=== PATIENT | male | born 1940 | race Hispanic/Latino ===

== ENCOUNTER 2017-11-12 08:17 | Outpatient (RCR) | payer OTHER ==
[~2017-11-12 08:17] MED LIST: ASPIR 8181 MG PO; BRILINTA90 MG PO; COREG6.25 MG PO; COZAAR100 MG PO; ELIQUIS PO; FINASTERIDE5 MG PO; FLOMAX0.4 MG PO; FUROSEMIDE20 MG PO; LASIX40 MG PO; LIDOCAINE VISC 2% SOLN 15 ML UDC ONE; METOLAZONE2.5 MG PO; METOLAZONE5 MG PO; OMEPRAZOLE40 MG PO; PANTOPRAZOLE SO20 MG PO; POTASSIUM CHLOR8 ME1 PO; RANITIDINE HCL300 MG PO; REGLAN10 MG PO; SIMVASTATIN40 MG PO; TICLOPIDINE HC250 MG PO; TOPROL XL25 MG PO; TYLENOL WITH C1 EACH PO
== END 2017-11-17 ==
LOC: WCC 08:17
PROVIDERS: ATTEND Podiatrist Foot & Ankle Surgery
DX: I70.203 Unspecified atherosclerosis of native arteries of extremities, bilateral legs (principal); I70.234 Atherosclerosis of native arteries of right leg with ulceration of heel and midfoot; I70.235 Atherosclerosis of native arteries of right leg with ulceration of other part of foot; L97.413 Non-pressure chronic ulcer of right heel and midfoot with necrosis of muscle; L97.513 Non-pressure chronic ulcer of other part of right foot with necrosis of muscle; B96.89 Other specified bacterial agents as the cause of diseases classified elsewhere; I10 Essential (primary) hypertension; I48.2 Chronic atrial fibrillation; I50.9 Heart failure, unspecified; I25.810 Atherosclerosis of coronary artery bypass graft(s) without angina pectoris; Z86.79 Personal history of other diseases of the circulatory system
CPT/HCPCS: 15275 ×2; 36415; 82948; 97597; Q4117 ×2

== ENCOUNTER 2017-12-17 07:30 | Outpatient (RCR) | payer OTHER ==
[2017-12-17] MEDS ORDERED: MUPIROCIN 2% OINT 22 GM TUBE ONE (16:44)
[2017-12-17] MEDS ORDERED: LIDOCAINE VISC 2% SOLN 15 ML UDC ONE (16:44)
== END 2017-12-18 ==
LOC: WCC 07:30
PROVIDERS: ATTEND Podiatrist Foot & Ankle Surgery
DX: I70.203 Unspecified atherosclerosis of native arteries of extremities, bilateral legs (principal); I70.235 Atherosclerosis of native arteries of right leg with ulceration of other part of foot; I70.234 Atherosclerosis of native arteries of right leg with ulceration of heel and midfoot; L97.513 Non-pressure chronic ulcer of other part of right foot with necrosis of muscle; L97.413 Non-pressure chronic ulcer of right heel and midfoot with necrosis of muscle; L60.0 Ingrowing nail; B95.2 Enterococcus as the cause of diseases classified elsewhere; B95.61 Methicillin susceptible Staphylococcus aureus infection as the cause of diseases classified elsewhere; B96.89 Other specified bacterial agents as the cause of diseases classified elsewhere; I10 Essential (primary) hypertension; I48.2 Chronic atrial fibrillation; I50.9 Heart failure, unspecified; I25.810 Atherosclerosis of coronary artery bypass graft(s) without angina pectoris; Z86.79 Personal history of other diseases of the circulatory system
CPT/HCPCS: 87071; 87075; 87186; 87205; 97597; G0463 ×3

== ENCOUNTER 2018-01-14 07:55 | Outpatient (RCR) | payer OTHER ==
[~2018-01-14 07:55] MED LIST changes: +MUPIROCIN 2% OINT 22 GM TUBE ONE
[2018-01-14] MEDS ORDERED: LIDOCAINE VISC 2% SOLN 15 ML UDC ONE (15:20)
== END 2018-01-15 ==
LOC: WCC 07:55
PROVIDERS: ATTEND Podiatrist Foot & Ankle Surgery
DX: I70.235 Atherosclerosis of native arteries of right leg with ulceration of other part of foot (principal); I70.203 Unspecified atherosclerosis of native arteries of extremities, bilateral legs; L97.513 Non-pressure chronic ulcer of other part of right foot with necrosis of muscle; L97.511 Non-pressure chronic ulcer of other part of right foot limited to breakdown of skin; B96.89 Other specified bacterial agents as the cause of diseases classified elsewhere; I10 Essential (primary) hypertension; I25.810 Atherosclerosis of coronary artery bypass graft(s) without angina pectoris; I48.2 Chronic atrial fibrillation; I50.9 Heart failure, unspecified; Z86.79 Personal history of other diseases of the circulatory system

== ENCOUNTER 2018-01-28 07:21 | Outpatient (RCR) | payer OTHER ==
[~2018-01-28 07:21] MED LIST changes: -LIDOCAINE VISC 2% SOLN 15 ML UDC ONE; -MUPIROCIN 2% OINT 22 GM TUBE ONE
== END 2018-02-15 ==
LOC: WCC 07:21
PROVIDERS: ATTEND Podiatrist Foot & Ankle Surgery
DX: I70.235 Atherosclerosis of native arteries of right leg with ulceration of other part of foot (principal); L97.511 Non-pressure chronic ulcer of other part of right foot limited to breakdown of skin; I70.203 Unspecified atherosclerosis of native arteries of extremities, bilateral legs; B96.89 Other specified bacterial agents as the cause of diseases classified elsewhere; I10 Essential (primary) hypertension; I25.810 Atherosclerosis of coronary artery bypass graft(s) without angina pectoris; I48.2 Chronic atrial fibrillation; I50.9 Heart failure, unspecified; Z86.79 Personal history of other diseases of the circulatory system

== ENCOUNTER → 2018-06-19 | Day surgery (SDC) | payer OTHER ==
[2018-06-02 16:38] LABS: BASOPHILS # (AUTO) 0.1 (0.0-0.1); EOSINOPHILS # (AUTO) 0.3 (0.0-0.4); EOSINOPHILS % 5.3 % (0.0-6.0); HEMATOCRIT 41.5 % (38.2-49.6); HEMOGLOBIN 13.3 g/dL (14.0-18.0); LYMPHOCYTES # (AUTO) 1.2 (1.0-3.2); LYMPHOCYTES % 25.1 % (18.0-39.1); MEAN CORPUSCULAR HEMOGLOBIN 31.1 pg (28-32); MEAN CORPUSCULAR VOLUME 97.2 fL (81-99); MONOCYTES # (AUTO) 0.5 (0.2-0.8); MONOCYTES % 9.4 % (4.4-11.3); NEUTROPHILS # (AUTO) 2.9 (2.1-6.9); PLATELET COUNT 143 x10e3/uL (140-360); RED BLOOD COUNT 4.27 x10e6/uL (4.3-5.7); RED CELL DISTRIBUTION WIDTH 15.7 % (11.7-14.4)
[2018-06-02 16:53] LABS: ANION GAP 15.2 mmol/L (8-16); CALCIUM 9.2 mg/dL (8.4-10.2); CREATININE, SERUM 1.57 mg/dL (0.72-1.25); POTASSIUM 4.2 mmol/L (3.5-5.1)
[~2018-06-19] MED LIST changes: +BUPIVACAINE HC 0.75% PF 10ML VIAL INJ ONE; +CHONDR SU A NA/HYALUR SOD 1 EACH KIT IO ONE; +EPINEPHRINE HCL INJ 1 MG/ML AMP ONE; +LIDOCAINE 2% /EPINEPHRINE 20 ML SDV INJ ONE; +LIDOCAINE HCL-PF 4% 40 MG/1 ML 5ML AMP ONE; +PILOCARPINE HCL(OPTH) 15 ML LIQD ONE; +POVIDONE IODINE 5% (OPTH) 30 ML BTL ONE; +PROPOFOL IV EMULSION 10 MG/ML 20 ML VIAL ONE; +TOBRAMYCIN/DEXAMETHASONE(OPTH) 3.5 GM TUBE ONE; +XARELTO10 MG
== END | disposition home or self-care (01) ==
LOC: OR 06:05
PROVIDERS: ATTEND Ophthalmology
DX: H25.12 Age-related nuclear cataract, left eye (principal); I25.810 Atherosclerosis of coronary artery bypass graft(s) without angina pectoris; I13.0 Hypertensive heart and chronic kidney disease with heart failure and stage 1 through stage 4 chronic kidney disease, or unspecified chronic kidney disease; N18.9 Chronic kidney disease, unspecified; I50.9 Heart failure, unspecified; Z88.0 Allergy status to penicillin; Z01.810 Encounter for preprocedural cardiovascular examination; Z01.812 Encounter for preprocedural laboratory examination; Z79.82 Long term (current) use of aspirin; Z79.02 Long term (current) use of antithrombotics/antiplatelets; Z95.0 Presence of cardiac pacemaker; Z95.1 Presence of aortocoronary bypass graft; Z86.73 Personal history of transient ischemic attack (TIA), and cerebral infarction without residual deficits
CPT/HCPCS: 36415; 66982; 80048; 85025; 93005; J0171; J2001

== ENCOUNTER → 2018-09-04 | Day surgery (SDC) | payer OTHER ==
[2018-09-03 13:16] LABS: BASOPHILS % 0.3 % (0.0-1.0); EOSINOPHILS # (AUTO) 0.3 (0.0-0.4); EOSINOPHILS % 4.6 % (0.0-6.0); HEMATOCRIT 41.1 % (38.2-49.6); HEMOGLOBIN 14.1 g/dL (14.0-18.0); LYMPHOCYTES % 16.1 % (18.0-39.1); MEAN CORPUSCULAR HGB CONC 34.3 g/dL (31-35); MEAN CORPUSCULAR VOLUME 93.2 fL (81-99); MONOCYTES # (AUTO) 0.6 (0.2-0.8); MONOCYTES % 9.3 % (4.4-11.3); NEUTROPHILS # (AUTO) 4.1 (2.1-6.9); NEUTROPHILS % 69.4 % (38.7-80.0); PLATELET COUNT 132 x10e3/uL (140-360); RED BLOOD COUNT 4.41 x10e6/uL (4.3-5.7); RED CELL DISTRIBUTION WIDTH 13.7 % (11.7-14.4)
[~2018-09-04] MED LIST changes: +CYCLOPENTOLATE HCL 1% OPTH SOLN 2ML BTL ONE; +GATIFLOXACIN(OPTH) 5 ML LIQD ONE; +LIDOCAINE HCL 2% LOCAL INJ 5 ML SDV VIAL INJ ONE; +PHENYLEPHRINE HCL 2 ML DROPS ONE
[2018-09-04 10:00] VITALS: BP 146/68
== END | disposition home or self-care (01) ==
LOC: OR 06:10
PROVIDERS: ATTEND Ophthalmology
DX: H25.11 Age-related nuclear cataract, right eye (principal); I10 Essential (primary) hypertension; I25.10 Atherosclerotic heart disease of native coronary artery without angina pectoris; K21.9 Gastro-esophageal reflux disease without esophagitis; Z88.6 Allergy status to analgesic agent; Z88.0 Allergy status to penicillin; Z01.812 Encounter for preprocedural laboratory examination; Z79.02 Long term (current) use of antithrombotics/antiplatelets; Z79.82 Long term (current) use of aspirin; Z86.73 Personal history of transient ischemic attack (TIA), and cerebral infarction without residual deficits; Z87.01 Personal history of pneumonia (recurrent); Z95.1 Presence of aortocoronary bypass graft; Z95.810 Presence of automatic (implantable) cardiac defibrillator
CPT/HCPCS: 36415; 66982; 85025; J0171; J2001 ×2; V2632

== ENCOUNTER 2019-02-03 14:03 | Observation (INO) | payer OTHER ==
[~2019-02-03] VITALS: Ht 175.3 cm; Wt 64.4 kg
[~2019-02-03 14:03] MED LIST changes: -BUPIVACAINE HC 0.75% PF 10ML VIAL INJ ONE; -CHONDR SU A NA/HYALUR SOD 1 EACH KIT IO ONE; -CYCLOPENTOLATE HCL 1% OPTH SOLN 2ML BTL ONE; -EPINEPHRINE HCL INJ 1 MG/ML AMP ONE; -GATIFLOXACIN(OPTH) 5 ML LIQD ONE; -LIDOCAINE 2% /EPINEPHRINE 20 ML SDV INJ ONE; -LIDOCAINE HCL 2% LOCAL INJ 5 ML SDV VIAL INJ ONE; -LIDOCAINE HCL-PF 4% 40 MG/1 ML 5ML AMP ONE; -PHENYLEPHRINE HCL 2 ML DROPS ONE; -PILOCARPINE HCL(OPTH) 15 ML LIQD ONE; -POVIDONE IODINE 5% (OPTH) 30 ML BTL ONE; -PROPOFOL IV EMULSION 10 MG/ML 20 ML VIAL ONE; -TOBRAMYCIN/DEXAMETHASONE(OPTH) 3.5 GM TUBE ONE; -XARELTO10 MG; +XARELTO10 MG PO
--- OUTSIDE RECORDS SUMMARY | 2019-02-03 14:05 | XMS REPORT | Continuity of Care Document ---
Author Author [facility] Interface Address Unknown Phone Unavailable Problems Problem Status Onset Date Classification Date Reported Comments Source Hypercholesterolemia Active Problem 11/01/2014 Carrol Mcclendon Occlusion and stenosis of carotid artery Active Problem 11/01/2014 Carrol Mcclendon CRI Active Problem 11/01/2014 Carrol Mcclendon AICD present Active Problem 11/01/2014 Carrol Mcclendon Abnormal ECG Active Problem 11/01/2014 Carrol Mcclendon Mitral regurgitation Active Problem 11/01/2014 Carrol Mcclendon Carotid artery disease Active Problem 11/01/2014 Carrol Mcclendon 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 graft Active Problem 11/01/2014 Carrol Mcclendon Chronic systolic heart failure Active Problem 11/01/2014 Carrol Mcclendon 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 Problem 11/01/2014 Carrol Mcclendon Angina pectoris Active Problem 11/01/2014 Carrol Mcclendon Medications Medication Details Route Status Patient Instructions Ordering Provider Order Date Source Metoprolol Succinate 1 tablet by mouth Active 50 mg by mouth daily Florencedi 10/05/2014 Carrol Mcclendon Allergies, Adverse Reactions, Alerts Substance Category Reaction Severity Reaction type Status Date Reported Comments Source Immunizations Immunization Date Given Site Status Last Updated Comments Source Results Order Name Results Value Reference Range Date Interpretation Comments Source Vital Signs Vital Sign Value Date Comments Source Encounters Location Location Details Encounter Type Encounter Number Reason For Visit Attending Provider ADM Date DC Date Status Source Carrol Mccl[place]on [place] Unknown [id number] 10/11/2014 10/11/2014 Carrol Mcclendon [place] Unknown [id number] 10/11/2014 10/11/2014 Carrol Mcclendon MD [place] Unknown [id number] 11/25/2014 11/25/2014 Carrol Mcclendon Procedures Procedure Code Date Perfomer Comments Source
--- OUTSIDE RECORDS SUMMARY | 2019-02-03 14:05 | XMS REPORT ---
Author Author Carrol Mcclendon Organization [employer] Address Unknown Phone Unavailable Care Team Providers Care Shop Tech Name Role Phone Carrol Mcclendon CP Unavailable Encounters Encounter Location Date Unknown Carrol Mcclendon MD [place] Oct 11, 2014 Problems Problem Type Condition ICD-9 Code Onset Dates Condition Status Problem Hypercholesterolemia 272.0 Active Problem Occlusion and stenosis of carotid artery 433.10 Active Problem CRI (chronic renal insufficiency) 585.9 Active Problem AICD (automatic cardioverter/defibrillator) present V45.02 Active Problem Abnormal ECG 794.31 Active Problem Mitral regurgitation 424.0 Active Problem Carotid artery disease 447.9 Active Problem 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 graft 414.05 Active Problem Chronic systolic heart failure 428.22 Active Problem Atherosclerosis of lower extremity with claudication 440.21 Active Problem Angina pectoris 413.9 Active Medications Medication Code System Code Instructions Start Date End Date Status Dosage Metoprolol Succinate Unknown 0 50 mg by mouth daily Oct 05, 2014 April 09, 2015 Active 1 tablet Social History Social History Element Qualifiers Date Reported Smoking . Status Former Smoker Quit in 1974 Oct 05, 2014 Alcohol Use No. Oct 05, 2014 Alcohol Screening: No. Did you have a drink containing alcohol in the past year?: No, Points: 0, Interpretation: Negative Oct 05, 2014 Marital Status: . Oct 05, 2014 Do you drink alcohol? No. 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
--- OUTSIDE RECORDS SUMMARY | 2019-02-03 14:05 | XMS REPORT ---
Author Author Carrol Mcclendon Organization [employer] Address Unknown Phone Unavailable Care Team Providers Care Kosher Inspector Name Role Phone Carrol Mcclendon CP Unavailable Encounters Encounter Location Date Unknown Carrol Mcclendon [place] Oct 11, 2014 Unknown Carrol Mcclendon MD [place] Nov 25, 2014 Social History Social History Element Qualifiers Date [...]
[2019-02-03 14:40] LABS: BILIRUBIN,URINE NEGATIVE (NEGATIVE); CLARITY,URINE CLEAR (CLEAR); COLOR,URINE YELLOW (YELLOW); KETONES,URINE NEGATIVE (NEGATIVE); LEUKOCYTE ESTERASE ,URINE NEGATIVE (NEGATIVE); NITRITE,URINE NEGATIVE (NEGATIVE); PROTEIN,URINE DIPSTICK 2+ (NEGATIVE); URINE UROBILINOGEN 0.2 mg/dL (0.2 - 1)
[2019-02-03 14:41] LABS: BASOPHILS % 0.6 % (0.0-1.0); EOSINOPHILS # (AUTO) 0.1 (0.0-0.4); EOSINOPHILS % 1.4 % (0.0-6.0); HEMATOCRIT 42.9 % (38.2-49.6); LYMPHOCYTES % 19.8 % (18.0-39.1); MEAN CORPUSCULAR HEMOGLOBIN 32.3 pg (28-32); MEAN CORPUSCULAR HGB CONC 32.6 g/dL (31-35); MEAN CORPUSCULAR VOLUME 99.1 fL (81-99); MONOCYTES # (AUTO) 0.6 (0.2-0.8); MONOCYTES % 12.4 % (4.4-11.3); NEUTROPHILS # (AUTO) 3.4 (2.1-6.9); NEUTROPHILS % 65.6 % (38.7-80.0); PLATELET COUNT 119 x10e3/uL (140-360); RED BLOOD COUNT 4.33 x10e6/uL (4.3-5.7); RED CELL DISTRIBUTION WIDTH 15.7 % (11.7-14.4)
[2019-02-03 14:50] LABS: BACTERIA,URINE MODERATE /HPF; EPITHELIAL CELLS,URINE RARE /LPF
[2019-02-03 14:53] LABS: INR 1.16; PROTHROMBIN TIME 15.4 seconds (11.9-14.5)
[2019-02-03 14:54] LABS: PARTIAL THROMBOPLASTIN TIME 33.5 seconds (23.8-35.5)
[2019-02-03 15:00] LABS: ALANINE AMINOTRANSFERASE 19 IU/L (0-55); ALBUMIN/GLOBULIN RATIO 1.2 (0.8-2.0); ALKALINE PHOSPHATASE 82 IU/L (40-150); ANION GAP 17.2 mmol/L (8-16); BLOOD UREA NITROGEN 49 mg/dL (7-26); BUN/CREATININE RATIO 22 (6-25); CALCIUM 9.6 mg/dL (8.4-10.2); CARBON DIOXIDE 26 mmol/L (22-29); CHLORIDE 106 mmol/L (98-107); CREATINE KINASE 83 IU/L (30-200); CREATININE, SERUM 2.25 mg/dL (0.72-1.25); EST GLOMERULAR FILTRATION RATE 28 ML/MIN (60-); GLUCOSE 101 mg/dL (74-118); POTASSIUM 4.2 mmol/L (3.5-5.1); SODIUM 145 mmol/L (136-145)
--- NOTE | 2019-02-03 15:29 | Diagnostic Imaging Report ---
EXAM: CHEST SINGLE (PORTABLE) DATE: 02/03/2019 2:25 PM INDICATION: Shortness of breath, chest pain COMPARISON: No previous chest x-ray available on PACS for comparison FINDINGS: Lines and tubes: Implanted cardiac device on the left with transvenous leads extending to the right atrium and right ventricle. There are wire sternotomy sutures and surgical clips in the mediastinum. Cardiac silhouette is moderately enlarged. There is mild pulmonary vascular congestion. Small bilateral pleural effusions are present. Mild atelectasis at the lung bases. No pneumothorax. Upper abdomen unremarkable with surgical clips seen in the right upper quadrant. No acute bony abnormality. IMPRESSION: Cardiomegaly, pulmonary vascular congestion and small bilateral pleural effusions. Signed by: Dr. Edwardo Cheng M.D. on 02/03/2019 3:26 PM
--- NOTE | 2019-02-03 16:15 | NUR ---
BLADDER SCAN [id number]; DR. MCCLELLAN INFORMED
[2019-02-03] MEDS ORDERED: SODIUM CHLORIDE FLUSH 10 ML SYR INJ PRN (17:00)
[2019-02-03] MEDS: FUROSEMIDE INJ 10 MG/ML 4 ML VIAL IV SCH (17:15)
--- NOTE | 2019-02-03 17:56 | NUR ---
Received patient from ED at this time. A&Ox3. Irish speaking. 18 g, R AC saline lock, no signs of infiltration. No pain or distress noted. Lung sounds clear, SpO2 96% on room air. Tele box 7, AFib with underlying pacing on demand. Bowel sounds active. Skin warm, dry, and intact. Slight bruising noted on arms. +1 pitting edema to BLE. Patient reports having a bowel movement this morning. Patient lives with daughter, but completes ADLs independently. Bed locked in lowest position, call light in reach. Daughter at bedside.
[2019-02-03 18:10] VITALS: BP 141/87
[2019-02-03 18:14] VITALS: BP 141/87
[2019-02-03] MEDS ORDERED: PNEUMOCOCCAL VACCINE POLYVALENT 23 MCG/0.5 ML VIAL IM SCH (18:43)
[2019-02-03] MEDS ORDERED: POTASSIUM CHLORIDE 10MEQ EA PO NR (19:00)
[2019-02-03] MEDS ORDERED: INFLUENZA VIRUS VAC SPLIT INJ 0.5 ML SYR IM NR (19:15)
--- NOTE | 2019-02-03 19:15 | NUR ---
Received bedside shift report from RN. Patient is alert and oriented x3. Performed comprehensive assessment on patient. Patient reported no chest pain, shortness of breath or pain. RN instructed family members that the patient will need blood drawn near midnight to check on heart. Verbalized understanding.
[2019-02-03 20:00] VITALS: BP 124/69
[2019-02-03] MEDS ORDERED: SIMVASTATIN 40 MG TAB PO SCH (21:00)
[2019-02-03] MEDS ORDERED: METOCLOPRAMIDE HCL 10 MG TAB PO SCH (21:00)
[2019-02-03] MEDS ORDERED: METOPROLOL SUCCINATE 25 MG TAB XL PO SCH (21:00)
[2019-02-04 00:49] VITALS: BP 116/77
[2019-02-04 00:56] LABS: CREATINE KINASE MB 1.7 ng/mL (0-5.0)
--- NOTE | 2019-02-04 01:54 | History and Physical ---
PRIMARY CARE PHYSICIAN: Dr. Feliciano Jaramillo. CHIEF COMPLAINT: Acute exacerbation of systolic dysfunction, congestive heart failure. HISTORY: An 78-year-old male apparently for the past week or so was getting some shake supplement from his neighbor, came in with increasing shortness of breath for the past day or so. The patient will gain approximately 3-5 pounds. The patient is otherwise stable. He does have chronic kidney disease and systolic dysfunction, congestive heart failure. He is on furosemide 40 mg twice a day. PAST MEDICAL HISTORY: Systolic dysfunction, congestive heart failure. Last ejection fraction approximately 20% to 25%. Coronary artery bypass surgery, coronary artery disease, AICD, hypertension, reflux, atrial fibrillation, antiepileptic therapy, chronic kidney disease stage 3. SOCIAL HISTORY: The patient does not smoke or use alcohol. No recreational drugs. ALLERGIES: MORPHINE AND PENICILLIN. HOME MEDICATION: List is reviewed. REVIEW OF SYSTEMS: Short of breath, improved. PHYSICAL EXAMINATION: VITAL SIGNS: Temperature is 98, blood pressure 141/87, pulse rate 76, respirations 20. GENERAL: The patient is not in acute distress. Awake. HEENT: Normocephalic, atraumatic. Anicteric. NECK: Supple grossly, positive JVD. PULMONARY: Diminished breath sound at bases with rales. CARDIOVASCULAR: S1, S2. Irregularly irregular. Rate control. ABDOMEN: Soft, unremarkable. EXTREMITIES: No gross cyanosis or edema. NEUROLOGIC: No gross focal deficit. Chest x-ray shows cardiomegaly, pulmonary vascular congestion and small bilateral pleural effusion. IMPRESSION: [id number] systolic dysfunction, congestive heart failure exacerbation. PLAN: Discussed with the patient regarding medication, fluid restriction, and supplement. The patient expressed understanding. Observation. We will continue with home medication on discharge, but for now, continue with IV furosemide. MD RENY Lewis/KENZIE /[id number]
[2019-02-04 04:00] VITALS: BP 135/81
--- NOTE | 2019-02-04 06:07 | Diagnostic Imaging Report ---
Examination: Single AP view of the chest. COMPARISON: Portable chest 02/03/2019 INDICATION: Difficulty breathing, CHF IMPRESSION: 1. Lines and Tubes: Stable left upper chest multilead cardiac device. 2. Lungs are well-inflated. No interval change in central pulmonary venous congestion and small bilateral pleural effusions. No consolidation. 3. Stable enlargement of the cardiac silhouette. 4. No acute bony abnormalities. Signed by: Dr. Gt Montano M.D. on 02/04/2019 6:04 AM
[2019-02-04 06:54] LABS: BASOPHILS % 0.4 % (0.0-1.0); EOSINOPHILS # (AUTO) 0.1 (0.0-0.4); EOSINOPHILS % 2.9 % (0.0-6.0); HEMATOCRIT 39.9 % (38.2-49.6); HEMOGLOBIN 12.9 g/dL (14.0-18.0); LYMPHOCYTES # (AUTO) 0.9 (1.0-3.2); LYMPHOCYTES % 19.1 % (18.0-39.1); MEAN CORPUSCULAR HEMOGLOBIN 31.9 pg (28-32); MEAN CORPUSCULAR HGB CONC 32.3 g/dL (31-35); MEAN CORPUSCULAR VOLUME 98.8 fL (81-99); MONOCYTES # (AUTO) 0.5 (0.2-0.8); MONOCYTES % 9.9 % (4.4-11.3); NEUTROPHILS # (AUTO) 3.3 (2.1-6.9); NEUTROPHILS % 67.5 % (38.7-80.0); PLATELET COUNT 105 x10e3/uL (140-360); RED BLOOD COUNT 4.04 x10e6/uL (4.3-5.7); RED CELL DISTRIBUTION WIDTH 15.8 % (11.7-14.4)
[2019-02-04] MEDS ORDERED: PANTOPRAZOLE SOD 40 MG TABEC PO SCH (07:30)
[2019-02-04 07:45] LABS: ANION GAP 16.2 mmol/L (8-16); CALCIUM 9.3 mg/dL (8.4-10.2); CREATININE, SERUM 2.08 mg/dL (0.72-1.25); POTASSIUM 4.2 mmol/L (3.5-5.1)
[2019-02-04 07:54] LABS: CREATINE KINASE MB 2.3 ng/mL (0-5.0)
--- NOTE | 2019-02-04 08:00 | NUR ---
EDUCATED ABOUT IMM, SIGNED, FILED IN CHART, WITH COPY LEFT WITH FAMILY AT BEDSIDE.
--- NOTE | 2019-02-04 08:00 | NUR ---
PER CLAU MILES WITH DR. YAMILE VELÁSQUEZ TO D/C HOME FROM CARDIOLOGY STANDPOINT.
[2019-02-04 08:03] VITALS: BP 125/82
[2019-02-04] MEDS ORDERED: POTASSIUM CHLORIDE 10MEQ EA PO SCH (09:00)
[2019-02-04] MEDS ORDERED: RIVAROXABAN 15 MG TABLET PO SCH (09:00)
[2019-02-04] MEDS ORDERED: ASPIRIN 81 MG CHEW TAB PO SCH (09:00)
[2019-02-04] MEDS: FUROSEMIDE INJ 10 MG/ML 4 ML VIAL IV SCH (10:19)
[2019-02-04] MEDS ORDERED: PNEUMOCOCCAL VACCINE POLYVALENT 23 MCG/0.5 ML VIAL IM SCH (10:30)
[2019-02-04] MEDS ORDERED: INFLUENZA VIRUS VAC SPLIT INJ 0.5 ML SYR IM NR (10:30)
--- NOTE | 2019-02-04 10:52 | Consultation ---
DATE OF CONSULTATION: 02/03/2019 REASON FOR CONSULTATION: CHF. HISTORY OF PRESENT ILLNESS: This is an 78-year-old male with history of CAD, who presented with shortness of breath. According to the patient and family at the bedside, for two weeks he has been having shortness of breath, unable to carry out activities of daily living, difficulty lying flat, have to sit up that he was brought to the emergency room for evaluation. According to the daughter, he has not been eating real good and they have been giving him a lot of fluid. He denied any chest pain, any palpitation, any dizziness, any diaphoresis, or headache. Troponin x3 was negative. EKG showed AFib, irregularly irregular with demand pacing, BNP showed 2230, and chest x-ray showed pulmonary vascular congestion. PAST MEDICAL HISTORY: AFib, hypertension, systolic CHF, CAD, kidney stone, hyperlipidemia, and GERD. PAST SURGICAL HISTORY: ICD placement, cardiac stent x2, and open-heart surgery. FAMILY HISTORY: Positive for CAD and hypertension. SOCIAL HISTORY: No smoking. No drinking. He lives at home with family. MEDICATIONS: See med list. ALLERGIES: HE IS ALLERGIC TO MORPHINE AND PENICILLIN. REVIEW OF SYSTEMS: Negative except those mentioned above. PHYSICAL EXAMINATION: VITAL SIGNS: Temperature 96, heart rate 60, blood pressure 135/81, respirations 14, and oxygen saturation 95% on room air. GENERAL: He is awake, alert, and oriented x3. HEENT: Mucous membranes moist. NECK: Supple. LUNGS: Bilateral with decreased breath sounds. CARDIOVASCULAR: Irregularly irregular. ABDOMEN: Soft. NEUROLOGIC: Intact. EXTREMITIES: With 1+ edema. LABS: Sodium 143, potassium 4.2, chloride 104, CO2 of 27, BUN 52, creatinine 2.08, and glucose 74. White blood cell 4.86, hemoglobin 12.9, hematocrit 39.9, and platelets 105. PT 15.4, PTT 33.5, and INR 1.16. IMPRESSION: 1. Chronic systolic congestive heart failure exacerbation. 2. Hypertension. 3. Chronic kidney disease. 4. Atrial fibrillation. 5. History of coronary artery disease with coronary artery bypass grafting. PLAN: 1. We will get an echocardiogram to reassess his LV and valve function. 2. He has ICD that was recently interrogated. 3. We will put him on low-salt diet and 1.5 L fluid restriction. 4. His heart rate is controlled and he is anticoagulated with Xarelto. 5. We will continue diuretic and beta-robb. Further cardiac workup pending clinical course. Thank you for this consultation. Dictated by Jesusita Meadows, PRINCIPAL CLERK TYPIST MD JOAQUIM Rodrigues/KENZIE /[id number]
--- NOTE | 2019-02-05 02:46 | Discharge Summary ---
PRIMARY CARE PHYSICIAN: Feliciano Jaramillo MD MOTORSPORTS TECHNICIAN: Saurav Brandon MD FINAL DIAGNOSES: [id number] systolic dysfunction and congestive heart failure exacerbation secondary to over consumption of supplement drinks. HISTORY: An 78-year-old male, apparently recently started to drink supplement given by his neighbor. The patient came in with fluid overload. The patient at baseline taking furosemide and also Zaroxolyn. Discussed with the patient at length. Fluid restriction to 1 to 1.5 L per 24 hours, but on a daily weight for fluid monitoring. The patient continued with his furosemide. He can also take Zaroxolyn as needed. The patient is otherwise stable. Fluid management education given to the patient and family. The patient is stable, discharged home today on observation. MD RENY Lewis/MODL /[id number]
== END 2019-02-04 10:41 | disposition home or self-care (01) ==
LOC: ER 14:03 → ERHOLD 17:20 → MED/SURG 18:01
PROVIDERS: ADMIT Internal Medicine; ATTEND Internal Medicine
DX: I13.0 Hypertensive heart and chronic kidney disease with heart failure and stage 1 through stage 4 chronic kidney disease, or unspecified chronic kidney disease (principal); N18.3 Chronic kidney disease, stage 3 (moderate); I50.23 Acute on chronic systolic (congestive) heart failure; I25.810 Atherosclerosis of coronary artery bypass graft(s) without angina pectoris; I48.91 Unspecified atrial fibrillation; E78.5 Hyperlipidemia, unspecified; I34.0 Nonrheumatic mitral (valve) insufficiency; I07.1 Rheumatic tricuspid insufficiency; J90 Pleural effusion, not elsewhere classified; K21.9 Gastro-esophageal reflux disease without esophagitis; Z23 Encounter for immunization; Z88.6 Allergy status to analgesic agent; Z88.0 Allergy status to penicillin; Z79.02 Long term (current) use of antithrombotics/antiplatelets; Z79.82 Long term (current) use of aspirin; Z95.810 Presence of automatic (implantable) cardiac defibrillator; Z95.1 Presence of aortocoronary bypass graft
CPT/HCPCS: 36415; 71045 ×2; 80048; 80053; 81001; 82550 ×2; 82553 ×2; 83880; 84484 ×2; 85025 ×2; 85610; 85730; 90732; 93005; 93306; 99284; G0009; G0378 ×2; J1940 ×2; J8597; S0164

== ENCOUNTER 2020-04-15 16:15 | Inpatient (IN) | payer OTHER ==
[~2020-04-15] VITALS: Ht 175.3 cm; Wt 61.0 kg
[~2020-04-15 16:15] MED LIST changes: -ALLOPURINOL100 MG PO; -FUROSEMIDE40 MG PO; -NITROGLYCERIN0.4 MG SL; -PANTOPRAZOLE SO40 MG PO; -POTASSIUM CHLO10 ME1 PO; -TRAZODONE HCL50 MG PO; -XARELTO15 MG PO
--- OUTSIDE RECORDS SUMMARY | 2020-04-15 16:18 | XMS REPORT ---
Author Author [facility] t Organization [facility] Address [address] [place] [address] Phone Unavailable Care Team Providers Care Lead Electrical Engineer Name Role Phone BERNABE DÍAZ, GEETHA PCP Shanon WATERMANA Attphys Unavailable BURNS, OLGA Attphys Unavailable Beryl MCADAMS Attphys Unavailable BURNS, OLGA Admphys Unavailable Payers Payer Name Policy Type Policy Number Effective Date Expiration Date Yue Mckoy [id number] 2018 00:00:00 [facility] Problems Condition Name Condition Details Condition Category Status Onset Date Resolution Date Last Treatment Date Treating Clinician Comments Source Congestive heart failure CHF (congestive heart failure) Problem Active 2016-06-12 00:00:00 [facility] Hypercholesterolemia Hype rcholesterolemia Active Problem 11/01/2014 Mohamed O Otisourenu Problem Active 2014-11-01 03:45:50 Mohlucretia Mcclendon Occlusion and stenosis of carotid artery Occlusion and stenosis of carotid artery Active Problem 11/01/2014 Mohamed O Jeroudi Problem Active 2014-11-01 03:45:50 Maninder Mcclendon CRI (chronic renal insufficiency) CRI (chronic renal insufficiency) Active Problem 11/01/2014 Mohamed O Jerourenu Problem Active 2014-11-01 03:45:50 Mohlucretia Mcclendon 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) present Active Problem 11/01/2014 Mohamed O Jeroudi Problem Active 2014-11-01 03:45:50 Mohamed O Danelle Abnormal ECG Abno rmal ECG Active Problem 11/01/2014 Mohamed O Jerourenu Problem Active 2014-11-01 03:45:50 Mohamed Margarita Mcclendon Mitral regurgitation Mitr al regurgitation Active Problem 11/01/2014 Mohamed O Jeroudi Problem Active 2014-11-01 03:45:50 Carrol Avila Florencerenu Carotid artery disease Fragoso tid artery disease Active Problem 11/01/2014 Carrol Mcclendon Problem Active 31-10-15 03:45:50 Gingerlucretia Avila Otiskeyla 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 graft 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 graft Active Problem 11/01/2014 Carrol Mcclendon Problem Active 2014-11-01 03:45:50 Carrol Avila Otiskeyla Chronic systolic heart failure Chronic systolic heart failure Active Problem 11/01/2014 Carrol Mcclendon Problem Active 2014-11-01 03:45:50 Carrol Avila Otiskeyla 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 Problem 11/01/2014 Carrol Mcclendon Problem Active 2014-11-01 03:45:50 Carrol Mcclendon Angina pectoris Yudy na pectoris Active Problem 11/01/2014 Carrol Mcclendon Problem Active 2014-11-01 03:45:50 Carrol Mcclendon Allergies, Adverse Reactions, Alerts Allergy Name Allergy Type Status Severity Reaction(s) Onset Date Inacti ve Date Treating Clinician Comments Source Penicillin Allergy to Substance Active rash 2019-02-03 00:00:00 [facility] Morphine Allergy to Substance Active GETS CRAZY 2019-02-03 00:00:0 0 [facility] Social History Social Habit Start Date Stop Date Quantity Comments Source Smoking 2014-10-05 00:00:00 2014-10-05 00:00:00 [facility] Medications Ordered Medication Name Filled Medication Name Start Date Stop Da te Current Medication? Ordering Clinician Indication Dosage Frequency Signature (SIG) Comments Components Source Metoprolol Succinate 2014-10-05 00:00:00 Yes Carrol Mcclendon 1 tablet Carrol Mcclendon Aspirin (Aspir 81) 81 Mg Tablet. Aspirin (Aspir 81) 81 Mg Tablet. Yes 81 Daily [facility] Furosemide (Lasix) 40 Mg Tablet Furosemide (Lasix) 40 Mg Tablet Yes 40 Daily [facility] Metoclopramide Hcl (Reglan) 10 Mg Tablet Metoclopramid e Hcl (Reglan) 10 Mg Tablet Yes 10 Bedtime [facility] Metoprolol Succinate (Toprol Xl) 25 Mg Tab.er.24h Meto prolol Succinate (Toprol Xl) 25 Mg Tab.er.24h Yes 50 Bedtime [facility] Pantoprazole Sodium 20 Mg Tablet. Pantoprazole Sodium [address] Yes 40 Before Breakfast [facility] Potassium Chloride 8 Meq Tablet.er Potassium Chloride 8 Meq Tablet.er Yes 8 Daily [facility] Rivaroxaban (Xarelto) 10 Mg Tablet Rivaroxaban (Xarelto) 10 Mg Tablet Yes 15 Daily [facility] Simvastatin 40 Mg Tablet Simvastatin 40 Mg Tablet Yes 40 Today At 9:00PM [facility] Acetaminophen With Codeine (Tylenol With Codeine #3 Tablet) 1 Each Tablet, 300 Mg Oral Acetaminophen With Codeine (Tylenol With Codeine #3 Tablet) 1 Each Tablet, 300 Mg Oral 2018-06-02 00:00:00 No 300 As N eeded [facility] Metolazone 5 Mg Tablet, 2.5 Mg Oral Metolazone 5 Mg Tablet, 2.5 Mg Oral 2018-06-02 00:00:00 No 2.5 As Needed [facility] Simvastatin 40 Mg Tablet, 40 Mg Oral Simvastatin 40 Mg Tablet, 4 0 Mg Oral 2017-09-11 00:00:00 No 40 Daily [facility] Metolazone 2.5 Mg Tablet, 2.5 Mg Oral Metolazone 2.5 Mg Tablet, 2.5 Mg Oral 2017-06-18 00:00:00 No 2.5 Every Morning for El evated Blood Pressure [facility] Eliquis , 2.5 Mg Oral Eliquis , 2.5 Mg Oral 2017-01-21 00:00:00 No 2.5 Twice A Day [facility] Furosemide 20 Mg Tablet, 20 Mg Oral Furosemide 20 Mg Tablet, 20 Mg Oral 2016-06-15 00:00:00 No 20 Daily [facility] Losartan Potassium (Cozaar) 100 Mg Tablet, 100 Mg Oral Losartan Potassium (Cozaar) 100 Mg Tablet, 100 Mg Oral 2016-06-15 00:00:00 No 100 Daily [facility] Ticagrelor (Brilinta) 90 Mg Tablet, 60 Mg Oral Ticagre migel (Brilinta) 90 Mg Tablet, 60 Mg Oral 2016-06-15 00:00:00 No 60 Daily [facility] Carvedilol (Coreg) 6.25 Mg Tab, 6.25 Mg Oral Carvedilo l (Coreg) 6.25 Mg Tab, 6.25 Mg Oral 2016-06-12 00:00:00 No 6.25 Twice A Day [facility] Finasteride 5 Mg Tablet, 5 Mg Oral Finasteride 5 Mg Tablet, 5 Mg Oral 2016-06-12 00:00:00 No 5 Daily [facility] Omeprazole 40 Mg Capsule.dr, 40 Mg Oral Omeprazole 40 Mg Cap maryanne.dr, 40 Mg Oral 2016-06-12 00:00:00 No 40 Daily [facility] Ranitidine Hcl 300 Mg Tablet, 300 Mg Oral Ranitidine H cl 300 Mg Tablet, 300 Mg Oral 2016-06-12 00:00:00 No 300 Daily [facility] Ticlopidine Hcl 250 Mg Tablet, 250 Mg Oral Ticlopidine Hcl 250 Mg Tablet, 250 Mg Oral 2016-06-12 00:00:00 No 250 Twice A Day [facility] Tamsulosin Hcl (Flomax*) 0.4 Mg Cap, 0.4 Mg Oral Tamsu losin Hcl (Flomax*) 0.4 Mg Cap, 0.4 Mg Oral 2013-04-22 00:00:00 No .4 Daily [facility] Procedures Procedure Date / Time Performed Performing Clinician [facility] debby CATARACT SURGERY COMPLEX 2018-09-04 00:00:00 GRACIE FERREIRA CH, I [facility] CATARACT SURGERY COMPLEX 2018-06-19 00:00:00 GRACIE FERREIRA CH [facility] Encounters Start Date/Time End Date/Time En[facility] ID Source 2019-02-03 17:20:00 2019-02-03 17:20:00 Admitted Inpatient (obs) 1 OLGA BURNS [facility] [id number] [facility] 2018-09-04 06:10:00 2018-09-04 06:10:00 Registered Surgical Day Care [facility] [id number] [facility] 2018-06-19 06:05:00 2018-06-19 06:05:00 Registered Surgical Day Care [facility] [id number] [facility] 2018-01-28 07:21:00 2018-02-15 23:59:00 Discharged Recurring [facility] [id number] [facility] 2017-12-31 07:55:00 2018-01-15 23:59:00 Discharged Recurring [facility] [id number] [facility] 2017-11-19 08:06:00 2017-12-18 23:59:00 Discharged Recurring [facility] [id number] [facility] 2017-10-22 08:04:00 2017-11-17 23:59:00 Discharged Recurring [facility] [id number] [facility] 2017-09-24 07:56:00 2017-10-17 23:59:00 Discharged Recurring [facility] [id number] [facility] 2017-08-20 07:58:00 2017-09-17 23:59:00 Discharged Recurring [facility] [id number] [facility] 2017-09-12 05:40:00 2017-09-12 05:40:00 Registered Surgical Day Car NOAH Trujillo [facility] [id number] [facility] 2017-07-23 07:59:00 2017-08-17 23:59:00 Discharged Recurring [facility] [id number] [facility] 2017-06-25 07:53:00 2017-07-18 23:59:00 Discharged Recurring [facility] [id number] [facility] 2017-06-12 13:45:00 2017-06-19 17:00:00 Discharged Inpatient [facility] [id number] [facility] 2017-05-28 07:58:00 2017-06-17 23:59:00 Discharged Recurring [facility] [id number] [facility] 2017-05-30 14:56:00 2017-05-30 14:56:00 Registered Clinic [facility] [id number] [facility] 2017-05-14 07:11:00 2017-05-17 23:59:00 Discharged Recurring [facility] [id number] [facility] 2014-11-25 18:30:00 2014-11-25 18:30:00 Unknown MD TERESA York [id number] Carrol Mcclendon 2014-11-25 12:30:00 2014-11-25 12:30:00 [place] [id number] [employer] 2014-10-11 17:37:00 2014-10-11 17:37:00 Unknown MD TERESA York [id number] Carrol Mcclendon 2014-10-11 17:37:00 2014-10-11 17:37:00 Unknown MD TERESA York [id number] Carrol Mcclendon 2014-10-11 11:37:00 2014-10-11 11:37:00 [place] [id number] [employer] Results Test Description Test Time Test Comments Results Result Comments Source CHEST 2 VIEWS 2020-04-15 15:24:00 [facility] [address] [place] [address] Patient Name: ALISSA LOVE MR #: [id number] : 1940 Age/Sex: 79/M Req #: [id number] Adm Physician: Ordered by: AMAYA WATERMAN MD Report #: [id number] Location: [facility] Room/Bed: Procedure: [id number] DX/CHEST 2 VIEWS Exam Date: 04/15/20 Exam Time: 1510 REPORT STATUS: Signed EXAMINATION: CHEST 2 VIEWS INDICATION: Shortness of breath COMPARISON: Chest radiograph of 02/04/2019 FINDINGS: LINES/TUBES:Left chest AICD. LUNGS:The lungs are hyperinflated. There is perihilar fullness and indistinctness of the pulmonary vasculature. Mild bibasilar patchy opacities. PLEURA:Trace right pleural effusion. No left pleural effusion. No pneumothorax. MEDIASTINUM:Cardiomediastinal silhouette is stably enlarged. Atherosclerotic calcifications of the thoracic aorta. Postoperative findings of prior CABG. BONES/SOFT TISSUES:No acute osseous injury. Sternotomy wires in place. ABDOMEN:No free air under the diaphragm. IMPRESSION: Cardiomegaly and central pulmonary vascular congestion. Trace right pleural effusion. Mild bibasilar patchy opacities, most likely subsegmental atelectasis. Signed by: Ashish Mathews MD on 04/15/2020 3:27 PM Dictated By: ASHISH MATHEWS MD 26 Transcribed By: ADAN on 04/15/201526 COPY TO: AMAYA WATERMAN MD Creatine Kinase MB 2019-02-04 07:58:00 Test Item Creatine Kinase MB (test code = 52961-9) 2.30 0-5.0 [facility] [id number] 07:58:00* Test Item Value Reference Range Interpretation Comments Troponin I (test code = GCD7321) 0.052 0-0.300 [facility] Iaovw0876-76-55 07:50:00* Test Item Value Reference Range Interpretation Comments Sodium Level (test code = 2951-2) 143 136-145 [facility]assium Sbpkt4934-92-48 07:50:00* Test Item Value Reference Range Interpretation Comments Potassium Level (test code = 2823-3) 4.2 3.5-5.1 [facility] CenterChloride Wztdl3851-23-95 07:50:00* Test Item Value Reference Range Interpretation Comments Chloride Level (test code = 2075-0) 104 98-107 [facility] CenterCarbon Dioxide Iexpt4762-00-91 07:50:00* Test Item Value Reference Range Interpretation Comments Carbon Dioxide Level (test code = 2028-9) 27 22-29 [facility] CenterAnion Yim3657-20-78 07:50:00* Test Item Value Reference Range Interpretation Comments Anion Gap (test code = 52301-5) 16.2 8-16 H [facility] CenterBlood Urea Cvfegcgb8139-96-98 07:50:00* Test Item Value Reference Range Interpretation Comments Blood Urea Nitrogen (test code = 3094-0) 52 7-26 H [facility] CenterCreatinine2019-03-20 07:50:00* Test Item Value Reference Range Interpretation Comments Creatinine (test code = 2160-0) 2.08 0.72-1.25 H [facility] CenterBUN/Creatinine Gfcxg1618-68-31 07:50:00* Test Item Value Reference Range Interpretation Comments BUN/Creatinine Ratio (test code = 3097-3) 25 6-25 [facility] CenterEstimat Glomerular Filtration Rate 2019-02-04 07:50:00* Test Item Value Reference Range Interpretation Comments Estimat Glomerular Filtration Rate (test code = 021338502) 31 >60 L Ranges were taken from the National Kidney Disease Education Program and the [employer] [facility] [employer] literature.Reference ranges:60 or greater: Uyzoeo89-51 ( for 3 consecutive months): Chronic kidney disease 15 or less: Kidney failureShannon Medical CenterGlucose Weliv9161-55-83 07:50:00* Test Item Value Reference Range Interpretation Comments Glucose Level (test code = SSF3823) 74 74-118 [facility] CenterCalcium Bdhku3164-38-55 07:50:00* Test Item Value Reference Range Interpretation Comments Calcium Level (test code = 64788-5) 9.3 8.4-10.2 [facility] CenterCreatine Szfjhr7663-94-66 07:50:00* Test Item Value Reference Range Interpretation Comments Creatine Kinase (test code = 2157-6) 55 30-200 [facility] CenterWhite Blood Mfgjz7847-90-18 06:59:00* Test Item Value Reference Range Interpretation Comments White Blood Count (test code = 6690-2) 4.86 4.8-10.8 [facility] CenterRed Blood Hpfoi4535-21-08 06:59:00* Test Item Value Reference Range Interpretation Comments Red Blood Count (test code = 789-8) 4.04 4.3-5.7 L [facility] CenterHemoglobin2019-03-20 06:59:00* Test Item Value Reference Range Interpretation Comments Hemoglobin (test code = 63678-1) 12.9 14.0-18.0 L [facility] CenterHematocrit2019-03-20 06:59:00* Test Item Value Reference Range Interpretation Comments Hematocrit (test code = 4544-3) 39.9 38.2-49.6 [facility] CenterMean Corpuscular Bjdsnf8037-12-90 06:59:00* Test Item Value Reference Range Interpretation Comments Mean Corpuscular Volume (test code = 787-2) 98.8 81-99 [facility] CenterMean Corpuscular Fejuidfabl8370-77-52 06:59:00* Test Item Value Reference Range Interpretation Comments Mean Corpuscular Hemoglobin (test code = 785-6) 31.9 28-32 [facility] CenterMean Corpuscular Hemoglobin Concent 2019-02-04 06:59:00* Test Item Value Reference Range Interpretation Comments Mean Corpuscular Hemoglobin Concent (test code = 786-4) 32.3 31-35 [facility] CenterRed Cell Distribution Vjxgs7842-06-76 06:59:00* Test Item Value Reference Range Interpretation Comments Red Cell Distribution Width (test code = 22804-4) 15.8 11.7 -14.4 H [facility] CenterPlatelet Tqhhk2319-40-24 06:59:00* Test Item Value Reference Range Interpretation Comments Platelet Count (test code = 777-3) 105 140-360 L [facility] CenterNeutrophils (%) (Auto)2019-02-04 06:59:00 * Test Item Value Reference Range Interpretation Comments Neutrophils (%) (Auto) (test code = 73978-6) 67.5 38.7-80.0 [facility] CenterLymphocytes (%) (Auto)2019-02-04 06:59:00 * Test Item Value Reference Range Interpretation Comments Lymphocytes (%) (Auto) (test code = 736-9) 19.1 18.0-39.1 [facility] CenterMonocytes (%) (Auto)2019-02-04 06:59:00* Test Item Value Reference Range Interpretation Comments Monocytes (%) (Auto) (test code = 5905-5) 9.9 4.4-11.3 [facility] CenterEosinophils (%) (Auto)2019-02-04 06:59:00 * Test Item Value Reference Range Interpretation Comments Eosinophils (%) (Auto) (test code = 713-8) 2.9 0.0-6.0 [facility] CenterBasophils (%) (Auto)2019-02-04 06:59:00* Test Item Value Reference Range Interpretation Comments Basophils (%) (Auto) (test code = 706-2) 0.4 0.0-1.0 [facility] CenterIM GRANULOCYTES %2019-02-04 06:59:00* Test Item Value Reference Range Interpretation Comments IM GRANULOCYTES % (test code = IM GRANULOCYTES %) 0.2 0.0- 1.0 [facility] CenterNeutrophils # (Auto)2019-02-04 06:59:00* Test Item Value Reference Range Interpretation Comments Neutrophils # (Auto) (test code = 751-8) 3.3 2.1-6.9 [facility] CenterLymphocytes # (Auto)2019-02-04 06:59:00* Test Item Value Reference Range Interpretation Comments Lymphocytes # (Auto) (test code = 66796-5) 0.9 1.0-3.2 L [facility] CenterMonocytes # (Auto)2019-02-04 06:59:00* Test Item Value Reference Range Interpretation Comments Monocytes # (Auto) (test code = 742-7) 0.5 0.2-0.8 [facility] CenterEosinophils # (Auto)2019-02-04 06:59:00* Test Item Value Reference Range Interpretation Comments Eosinophils # (Auto) (test code = 711-2) 0.1 0.0-0.4 [facility] CenterBasophils # (Auto)2019-02-04 06:59:00* Test Item Value Reference Range Interpretation Comments Basophils # (Auto) (test code = 704-7) 0.0 0.0-0.1 [facility] CenterAbsolute Immature Granulocyte (auto 2019-02-04 06:59:00* Test Item Value Reference Range Interpretation Comments Absolute Immature Granulocyte (auto (tasha t code = Absolute Immature Granulocyte (auto) 0.01 0-0.1 [facility] CenterCHEST SINGLE (PORTABLE)2019-02-04 06:02:00 [facility] [address] [place] [address] Patient Name: ALISSA LOVE MR #: [id number] : 1940 Age/Sex: 78/M Req #: [id number] Adm Physician: OLGA BURNS MD Ordered by: EDWARDO MCCLELLAN MD Report #: [id number] Location: MED/SURG Room/Bed: 103-1 Procedure: [id number] DX/CHEST SINGLE (PORTABLE) Exam Date: 02/04/19 Exam Time: 524 REPORT STATUS: Signed Examination: Single AP view of the chest. COMPARISON: Portable chest 2018 INDICATION: Difficulty breathing, CHF IMPRESSION: 1. L arnold and Tubes: Stable left upper chest multilead cardiac device. 2. Lungs ar e well-inflated. No interval change in central pulmonary venous congestion and small bilateral pleural effusions. No consolidation. 3. Stable enlargement of the cardiac silhouette. 4. No acute bony abnormalities. Signed by: Dr. Gt Prater M.D. on 02/04/2019 6:04 AM Dictated By: GT PRATER MD 3 Transcribed By: ADAN on 02/04/19603 COPY TO: EDWARDO MCCLELLAN MD CHEST SINGLE (PORTABLE)2019-02-03 15:24:00 [place] [address] Patient Name: ALISSA LOVE MR #: [id number] : 1940 Age/Sex: 78/M Req #: [id number] Adm Physician: Ordered by: EDWARDO MCCLELLAN MD Report #: [id number] Location: Room/Bed: Procedure: [id number] DX/CHEST SINGLE (PORTABLE) Exam Date: 02/03/19 Exam Time: 1448 REPORT STATUS: Signed EXAM: CHEST SINGLE (PORTABLE) DATE: 02/03/2019 2:25 PM INDICATION: Shortness of breath, chest pain COMPARISON: No previous chest x-ray availa ble on PACS for comparison FINDINGS: Lines and tubes: Implanted cardia c device on the left with transvenous leads extending to the right atrium and right ventricle. There are wire sternotomy sutures and surgical clips in the m ediastinum. Cardiac silhouette is moderately enlarged. There is mild p ulmonary vascular congestion. Small bilateral pleural effusions are present. M ild atelectasis at the lung bases. No pneumothorax. Upper abdomen unremarka ble with surgical clips seen in the right upper quadrant. No acute bony abnorm ality. IMPRESSION: Cardiomegaly, pulmonary vascular congestion and small bilateral pleural effusions. Signed by: Dr. Edwardo Cheng M.D. on 019 3:26 PM Dictated By: EDWARDO CHENG MD 1526 Transcribed By: ADAN on 02/03/19 1526 CO PY TO: EDWARDO MCCLELLAN MD B-Type Natriuretic Lrxwkru0256-75-22 15:06:00* Test Item Value Reference Range Interpretation Comments B-Type Natriuretic Peptide (test code = 30430-0) 2230.0 0-100 H [facility] CenterTotal Ivmnqykdi1512-83-48 15:01:00* Test Item Value Reference Range Interpretation Comments Total Bilirubin (test code = 1975-2) 1.3 0.2-1.2 H [facility] CenterAspartate Amino Transf (AST/SGOT) 2019-02-03 15:01:00* Test Item Value Reference Range Interpretation Comments Aspartate Amino Transf (AST/SGOT) (test code = Aspartate Amino Transf (AST/SGOT)) 32 5-34 [facility] CenterAlanine Aminotransferase (ALT/SGPT) 2019-02-03 15:01:00* Test Item Value Reference Range Interpretation Comments Alanine Aminotransferase (ALT/SGPT) (test code = 1742-6) 19 0-55 [facility] CenterTotal Ntuvvga7411-82-18 15:01:00* Test Item Value Reference Range Interpretation Comments Total Protein (test code = 2885-2) 7.4 6.5-8.1 [facility] CenterAlbumin2019-03-19 15:01:00* Test Item Value Reference Range Interpretation Comments Albumin (test code = 1751-7) 4.0 3.5-5.0 [facility] CenterGlobulin2019-03-19 15:01:00* Test Item Value Reference Range Interpretation Comments Globulin (test code = 48641-6) 3.4 2.3-3.5 [facility] CenterAlbumin/Globulin Awuuz3533-08-67 15:01:00 * Test Item Value Reference Range Interpretation Comments Albumin/Globulin Ratio (test code = 1759-0) 1.2 0.8-2.0 [facility] CenterAlkaline Cctbyhfpybq6929-23-21 15:01:00* Test Item Value Reference Range Interpretation Comments Alkaline Phosphatase (test code = 6768-6) 82 40-150 [facility] CenterProthrombin Dofa4576-80-78 14:54:00* Test Item Value Reference Range Interpretation Comments Prothrombin Time (test code = 5902-2) 15.4 11.9-14.5 H [facility] CenterProthromb Time International Ratio 2019-02-03 14:54:00* Test Item Value Reference Range Interpretation Comments Prothromb Time International Ratio (test code = 6301-6) 1.16 Oral Anticoagulant Therapy INR Values:1. Low Intensity Therapy 1.5 - 2.02 . Moderate Intensity Therapy 2.0 - 3.03. High Intensity Therapy(1) 2.5 - 3. 54. High Intensity Therapy(2) 3.0 - 4.05. Panic Value INR > 5.0 [facility] CenterActivated Partial Thromboplast Time 2019-02-03 14:54:00* Test Item Value Reference Range Interpretation Comments Activated Partial Thromboplast Time (test code = 60291-0) 33.5 23.8-35.5 [facility] CenterUrine [id number] 14:50:00* Test Item Value Reference Range Interpretation Comments Urine WBC (test code = 5821-4) NONE 0-5 [facility] CenterUrine [id number] 14:50:00* Test Item Value Reference Range Interpretation Comments Urine RBC (test code = 21397-5) NONE 0-5 [facility] CenterUrine Xbpqwoqr9044-27-62 14:50:00* Test Item Value Reference Range Interpretation Comments Urine Bacteria (test code = 61642-9) MODERATE NONE H [facility] CenterUrine Epithelial Nubez3726-65-29 14:50:00 * Test Item Value Reference Range Interpretation Comments Urine Epithelial Cells (test code = 94464-3) RARE NONE [facility] CenterUrine Hyaline Lqbyu9521-73-03 14:50:00* Test Item Value Reference Range Interpretation Comments Urine Hyaline Casts (test code = 90983-4) 2-5 0-1 H [facility] CenterUrine Kmwil6938-77-77 14:40:00* Test Item Value Reference Range Interpretation Comments Urine Color (test code = 5778-6) YELLOW YELLOW [facility] CenterUrine Ytvyzbw3651-36-00 14:40:00* Test Item Value Reference Range Interpretation Comments Urine Clarity (test code = 47459-8) CLEAR CLEAR [facility] CenterUrine Specific Jeudsiz7200-26-06 14:40:00 * Test Item Value Reference Range Interpretation Comments Urine Specific [place] (test code = 5811-5) 1.015 1.010-1.02 5 [facility] CenterUrine [id number] 14:40:00* Test Item Value Reference Range Interpretation Comments Urine pH (test code = 45897-9) 6 5-7 [facility] CenterUrine Leukocyte Ctndgmnh4030-51-93 14:40:00* Test Item Value Reference Range Interpretation Comments Urine Leukocyte Esterase (test code = 5799-2) NEGATIVE NEGATIVE [facility] CenterUrine Meqilat9778-53-82 14:40:00* Test Item Value Reference Range Interpretation Comments Urine Nitrite (test code = 31873-9) NEGATIVE NEGATIVE [facility] CenterUrine Eoxbiht3128-20-98 14:40:00* Test Item Value Reference Range Interpretation Comments Urine Protein (test code = 5804-0) 2+ NEGATIVE H [facility] CenterUrine Glucose (UA)2019-02-03 14:40:00* Test Item Value Reference Range Interpretation Comments Urine Glucose (UA) (test code = 2349-9) NEGATIVE NEGATIVE [facility] Dfkcydp4953-35-93 14:40:00* Test Item Value Reference Range Interpretation Comments Urine Ketones (test code = 50995-0) NEGATIVE NEGATIVE [facility] Ivqzrbpuocux9058-86-81 14:40:00* Test Item Value Reference Range Interpretation Comments Urine Urobilinogen (test code = 14583-3) 0.2 0.2-1 [facility] Worheuqhp0205-49-92 14:40:00* Test Item Value Reference Range Interpretation Comments Urine Bilirubin (test code = 1978-6) NEGATIVE NEGATIVE [facility] Gqrum4289-45-09 14:40:00* Test Item Value Reference Range Interpretation Comments Urine Blood (test code = 61267-8) NEGATIVE NEGATIVE [facility] Yviceml3006-40-81 14:24:00* Test Item Value Reference Range Interpretation Comments Wound Culture (test code = 6462-6) Organism: ENTEROCOCCUS FAECALIS [facility] Cdxnvzc0677-44-13 14:24:00* Test Item Value Reference Range Interpretation Comments Wound Culture (test code = 6462-6) Organism: ENTEROCOCCUS FAECALIS [facility] Dplutqi0148-80-40 14:34:00* Test Item Value Reference Range Interpretation Comments Bedside Glucose (test code = 65121-0) 101 70-120 Meter ID: [id number] Glucose 2017-10-22 14:34:00* Test Item Value Reference Range Interpretation Comments Bedside Glucose (test code = 09605-1) 101 70-120 Meter ID: [id number] Glucose 2017-10-22 14:34:00* Test Item Value Reference Range Interpretation Comments Bedside Glucose (test code = 71348-0) 101 70-120 Meter ID: [id number] Medical CenterBacteria identification in wound by spftses2185-29-53 15:31:00* Test Item Value Reference Range Interpretation Comments Wound Culture (test code = 6462-6) Organism: STAPHYLOCOCCUS AUREUS [facility] CenterPotassium Qwett6727-88-12 13:36:00* Test Item Value Reference Range Interpretation Comments Potassium Level (test code = 2823-3) 4.2 3.5-5.1 [facility] CenterPotassium Rxged9144-09-01 13:36:00* Test Item Value Reference Range Interpretation Comments Potassium Level (test code = 2823-3) 4.2 3.5-5.1 [facility] Wcymh2140-58-13 13:36:00* Test Item Value Reference Range Interpretation Comments Potassium Level (test code = 2823-3) 4.2 3.5-5.1 [facility] Qcdqk0794-45-19 10:46:00* Test Item Value Reference Range Interpretation Comments Sodium Level (test code = 2951-2) 147 136-145 H [facility] CenterChloride Inndy3165-42-30 10:46:00* Test Item Value Reference Range Interpretation Comments Chloride Level (test code = 2075-0) 107 98-107 [facility] CenterCarbon Dioxide Cxcgn3563-42-86 10:46:00* Test Item Value Reference Range Interpretation Comments Carbon Dioxide Level (test code = 2028-9) 29 22-29 [facility] CenterAnion Yrq5169-40-22 10:46:00* Test Item Value Reference Range Interpretation Comments Anion Gap (test code = 87959-4) 17.3 8-16 H [facility] CenterBlood Urea Esjtwerm0423-17-32 10:46:00* Test Item Value Reference Range Interpretation Comments Blood Urea Nitrogen (test code = 3094-0) 24 7-26 [facility] CenterCreatinine2017-10-25 10:46:00* Test Item Value Reference Range Interpretation Comments Creatinine (test code = 2160-0) 1.43 0.72-1.25 H [facility] CenterBUN/Creatinine Nleaf3200-13-50 10:46:00* Test Item Value Reference Range Interpretation Comments BUN/Creatinine Ratio (test code = 3097-3) 17 6-25 [facility] CenterEstimat Glomerular Filtration Rate 2017-09-11 10:46:00* Test Item Value Reference Range Interpretation Comments Estimat Glomerular Filtration Rate (test code = 63204-9) 48 >60 L Ranges were taken from the National Kidney Disease Education Program and the [facility] Kidney Foundation literature.Reference ranges:60 or greater: Kcptpq40-97 ( for 3 consecutive months): Chronic kidney disease 15 or less: Kidney failureShannon Medical CenterGlucose Igxjn5158-31-39 10:46:00* Test Item Value Reference Range Interpretation Comments Glucose Level (test code = RQZ4851) 105 74-118 [facility] CenterCalcium Kazpu7198-67-34 10:46:00* Test Item Value Reference Range Interpretation Comments Calcium Level (test code = 42858-9) 10.0 8.4-10.2 [facility] Vbtbs9710-97-80 10:46:00* Test Item Value Reference Range Interpretation Comments Sodium Level (test code = 2951-2) 147 136-145 H [facility] CenterChloride Kpxio6103-74-44 10:46:00* Test Item Value Reference Range Interpretation Comments Chloride Level (test code = 2075-0) 107 98-107 [facility] CenterCarbon Dioxide Ojltw8419-69-79 10:46:00* Test Item Value Reference Range Interpretation Comments Carbon Dioxide Level (test code = 2028-9) 29 22-29 [facility] CenterAnion Kkf3496-60-95 10:46:00* Test Item Value Reference Range Interpretation Comments Anion Gap (test code = 27135-5) 17.3 8-16 H [facility] CenterBlood Urea Cvxtnuhn0424-73-20 10:46:00* Test Item Value Reference Range Interpretation Comments Blood Urea Nitrogen (test code = 3094-0) 24 7-26 [facility] CenterCreatinine2017-10-25 10:46:00* Test Item Value Reference Range Interpretation Comments Creatinine (test code = 2160-0) 1.43 0.72-1.25 H [facility] CenterBUN/Creatinine Fbdvs3553-03-38 10:46:00* Test Item Value Reference Range Interpretation Comments BUN/Creatinine Ratio (test code = 3097-3) 17 6-25 [facility] CenterEstimat Glomerular Filtration Rate 2017-09-11 10:46:00* Test Item Value Reference Range Interpretation Comments Estimat Glomerular Filtration Rate (test code = 21329-3) 48 >60 L Ranges were taken from the National Kidney Disease Education Program and the [facility] Kidney Foundation literature.Reference ranges:60 or greater: Pyrakf11-05 ( for 3 consecutive months): Chronic kidney disease 15 or less: Kidney failureShannon Medical CenterGlucose Tgtun7292-95-97 10:46:00* Test Item Value Reference Range Interpretation Comments Glucose Level (test code = EOH4883) 105 74-118 [facility] CenterCalcium Keqdr4499-60-44 10:46:00* Test Item Value Reference Range Interpretation Comments Calcium Level (test code = 32436-9) 10.0 8.4-10.2 [facility] Zhabr5571-67-15 10:46:00* Test Item Value Reference Range Interpretation Comments Sodium Level (test code = 2951-2) 147 136-145 H [facility] CenterChloride Rilfh2935-51-84 10:46:00* Test Item Value Reference Range Interpretation Comments Chloride Level (test code = 2075-0) 107 98-107 [facility] CenterCarbon Dioxide Nsyxf9868-11-39 10:46:00* Test Item Value Reference Range Interpretation Comments Carbon Dioxide Level (test code = 2028-9) 29 22-29 [facility] CenterAnion Wez7423-77-56 10:46:00* Test Item Value Reference Range Interpretation Comments Anion Gap (test code = 79612-0) 17.3 8-16 H [facility] CenterBlood Urea Ociyxrkx3188-34-85 10:46:00* Test Item Value Reference Range Interpretation Comments Blood Urea Nitrogen (test code = 3094-0) 24 7- [facility] CenterCreatinine2017-10-25 10:46:00* Test Item Value Reference Range Interpretation Comments Creatinine (test code = 2160-0) 1.43 0.72-1.25 H [facility] CenterBUN/Creatinine Vopbg3852-44-07 10:46:00* Test Item Value Reference Range Interpretation Comments BUN/Creatinine Ratio (test code = 3097-3) 17 05-12 [facility] CenterEstimat Glomerular Filtration Rate 2017-09-11 10:46:00* Test Item Value Reference Range Interpretation Comments Estimat Glomerular Filtration Rate (test code = 82897-1) 48 >60 L Ranges were taken from the National Kidney Disease Education Program and the [facility] Foundation literature.Reference ranges:60 or greater: Yruhkw63-79 ( for 3 consecutive months): Chronic kidney disease 15 or less: Kidney failureShannon Medical CenterGlucose Orjan5686-87-27 10:46:00* Test Item Value Reference Range Interpretation Comments Glucose Level (test code = HPF0545) 105 74-118 [facility] CenterCalcium Oqcux1174-23-96 10:46:00* Test Item Value Reference Range Interpretation Comments Calcium Level (test code = 32132-3) 10.0 8.4-10.2 [facility] CenterWhite Blood Bqfkp6721-49-95 09:49:00* Test Item Value Reference Range Interpretation Comments White Blood Count (test code = 6690-2) 6.71 4.8-10.8 [facility] CenterRed Blood Mslzg6027-88-80 09:49:00* Test Item Value Reference Range Interpretation Comments Red Blood Count (test code = 789-8) 4.25 4.3-5.7 L [facility] CenterHemoglobin2017-10-25 09:49:00* Test Item Value Reference Range Interpretation Comments Hemoglobin (test code = 73170-0) 13.8 14.0-18.0 L [facility] CenterHematocrit2017-10-25 09:49:00* Test Item Value Reference Range Interpretation Comments Hematocrit (test code = 4544-3) 42.3 38.2-49.6 [facility] CenterMean Corpuscular Teejmk8258-87-92 09:49:00* Test Item Value Reference Range Interpretation Comments Mean Corpuscular Volume (test code = 787-2) 99.5 81-99 H [facility] CenterMean Corpuscular Juuemqfoac4368-83-39 09:49:00* Test Item Value Reference Range Interpretation Comments Mean Corpuscular Hemoglobin (test code = 785-6) 32.5 28-32 H [facility] CenterMean Corpuscular Hemoglobin Concent 2017-09-11 09:49:00* Test Item Value Reference Range Interpretation Comments Mean Corpuscular Hemoglobin Concent (test code = 786-4) 32.6 31-35 [facility] CenterRed Cell Distribution Ijfbo8431-58-99 09:49:00* Test Item Value Reference Range Interpretation Comments Red Cell Distribution Width (test code = 60654-8) 14.2 11.7 -14.4 [facility] CenterPlatelet Hrynz4006-29-11 09:49:00* Test Item Value Reference Range Interpretation Comments Platelet Count (test code = 777-3) 152 140-360 [facility] CenterNeutrophils (%) (Auto)2017-09-11 09:49:00 * Test Item Value Reference Range Interpretation Comments Neutrophils (%) (Auto) (test code = 24232-0) 67.1 38.7-80.0 [facility] CenterLymphocytes (%) (Auto)2017-09-11 09:49:00 * Test Item Value Reference Range Interpretation Comments Lymphocytes (%) (Auto) (test code = 736-9) 19.7 18.0-39.1 [facility] CenterMonocytes (%) (Auto)2017-09-11 09:49:00* Test Item Value Reference Range Interpretation Comments Monocytes (%) (Auto) (test code = 5905-5) 8.2 4.4-11.3 [facility] CenterEosinophils (%) (Auto)2017-09-11 09:49:00 * Test Item Value Reference Range Interpretation Comments Eosinophils (%) (Auto) (test code = 713-8) 4.3 0.0-6.0 [facility] CenterBasophils (%) (Auto)2017-09-11 09:49:00* Test Item Value Reference Range Interpretation Comments Basophils (%) (Auto) (test code = 706-2) 0.6 0.0-1.0 [facility] CenterIM GRANULOCYTES %2017-09-11 09:49:00* Test Item Value Reference Range Interpretation Comments IM GRANULOCYTES % (test code = IM GRANULOCYTES %) 0.1 0.0- 1.0 [facility] CenterNeutrophils # (Auto)2017-09-11 09:49:00* Test Item Value Reference Range Interpretation Comments Neutrophils # (Auto) (test code = 751-8) 4.5 2.1-6.9 [facility] CenterLymphocytes # (Auto)2017-09-11 09:49:00* Test Item Value Reference Range Interpretation Comments Lymphocytes # (Auto) (test code = 87368-8) 1.3 1.0-3.2 [facility] CenterMonocytes # (Auto)2017-09-11 09:49:00* Test Item Value Reference Range Interpretation Comments Monocytes # (Auto) (test code = 742-7) 0.6 0.2-0.8 [facility] CenterEosinophils # (Auto)2017-09-11 09:49:00* Test Item Value Reference Range Interpretation Comments Eosinophils # (Auto) (test code = 711-2) 0.3 0.0-0.4 [facility] CenterBasophils # (Auto)2017-09-11 09:49:00* Test Item Value Reference Range Interpretation Comments Basophils # (Auto) (test code = 704-7) 0.0 0.0-0.1 [facility] CenterAbsolute Immature Granulocyte (auto 2017-09-11 09:49:00* Test Item Value Reference Range Interpretation Comments Absolute Immature Granulocyte (auto (tasha t code = Absolute Immature Granulocyte (auto) 0.01 0-0.1 [facility] CenterWhite Blood Uzqcg3176-15-19 09:49:00* Test Item Value Reference Range Interpretation Comments White Blood Count (test code = 6690-2) 6.71 4.8-10.8 [facility] CenterRed Blood Igyji4678-25-70 09:49:00* Test Item Value Reference Range Interpretation Comments Red Blood Count (test code = 789-8) 4.25 4.3-5.7 L [facility] CenterHemoglobin2017-10-25 09:49:00* Test Item Value Reference Range Interpretation Comments Hemoglobin (test code = 11062-8) 13.8 14.0-18.0 L [facility] CenterHematocrit2017-10-25 09:49:00* Test Item Value Reference Range Interpretation Comments Hematocrit (test code = 4544-3) 42.3 38.2-49.6 [facility] CenterMean Corpuscular Aiofqr6256-46-39 09:49:00* Test Item Value Reference Range Interpretation Comments Mean Corpuscular Volume (test code = 787-2) 99.5 81-99 H [facility] CenterMean Corpuscular Bwvgvjjylu6735-65-16 09:49:00* Test Item Value Reference Range Interpretation Comments Mean Corpuscular Hemoglobin (test code = 785-6) 32.5 28-32 H [facility] CenterMean Corpuscular Hemoglobin Concent 2017-09-11 09:49:00* Test Item Value Reference Range Interpretation Comments Mean Corpuscular Hemoglobin Concent (test code = 786-4) 32.6 31-35 [facility] CenterRed Cell Distribution Uxcri5797-50-22 09:49:00* Test Item Value Reference Range Interpretation Comments Red Cell Distribution Width (test code = 62736-0) 14.2 11.7 -14.4 [facility] CenterPlatelet Rurjj5535-35-62 09:49:00* Test Item Value Reference Range Interpretation Comments Platelet Count (test code = 777-3) 152 140-360 [facility] CenterNeutrophils (%) (Auto)2017-09-11 09:49:00 * Test Item Value Reference Range Interpretation Comments Neutrophils (%) (Auto) (test code = 39015-6) 67.1 38.7-80.0 [facility] CenterLymphocytes (%) (Auto)2017-09-11 09:49:00 * Test Item Value Reference Range Interpretation Comments Lymphocytes (%) (Auto) (test code = 736-9) 19.7 18.0-39.1 [facility] CenterMonocytes (%) (Auto)2017-09-11 09:49:00* Test Item Value Reference Range Interpretation Comments Monocytes (%) (Auto) (test code = 5905-5) 8.2 4.4-11.3 [facility] CenterEosinophils (%) (Auto)2017-09-11 09:49:00 * Test Item Value Reference Range Interpretation Comments Eosinophils (%) (Auto) (test code = 713-8) 4.3 0.0-6.0 [facility] CenterBasophils (%) (Auto)2017-09-11 09:49:00* Test Item Value Reference Range Interpretation Comments Basophils (%) (Auto) (test code = 706-2) 0.6 0.0-1.0 [facility] CenterIM GRANULOCYTES %2017-09-11 09:49:00* Test Item Value Reference Range Interpretation Comments IM GRANULOCYTES % (test code = IM GRANULOCYTES %) 0.1 0.0- 1.0 [facility] CenterNeutrophils # (Auto)2017-09-11 09:49:00* Test Item Value Reference Range Interpretation Comments Neutrophils # (Auto) (test code = 751-8) 4.5 2.1-6.9 [facility] CenterLymphocytes # (Auto)2017-09-11 09:49:00* Test Item Value Reference Range Interpretation Comments Lymphocytes # (Auto) (test code = 91806-1) 1.3 1.0-3.2 [facility] CenterMonocytes # (Auto)2017-09-11 09:49:00* Test Item Value Reference Range Interpretation Comments Monocytes # (Auto) (test code = 742-7) 0.6 0.2-0.8 [facility] CenterEosinophils # (Auto)2017-09-11 09:49:00* Test Item Value Reference Range Interpretation Comments Eosinophils # (Auto) (test code = 711-2) 0.3 0.0-0.4 [facility] CenterBasophils # (Auto)2017-09-11 09:49:00* Test Item Value Reference Range Interpretation Comments Basophils # (Auto) (test code = 704-7) 0.0 0.0-0.1 [facility] CenterAbsolute Immature Granulocyte (auto 2017-09-11 09:49:00* Test Item Value Reference Range Interpretation Comments Absolute Immature Granulocyte (auto (tasha t code = Absolute Immature Granulocyte (auto) 0.01 0-0.1 [facility] CenterWhite Blood Kzeqz4437-73-91 09:49:00* Test Item Value Reference Range Interpretation Comments White Blood Count (test code = 6690-2) 6.71 4.8-10.8 [facility] CenterRed Blood Sogwz7189-80-04 09:49:00* Test Item Value Reference Range Interpretation Comments Red Blood Count (test code = 789-8) 4.25 4.3-5.7 L [facility] CenterHemoglobin2017-10-25 09:49:00* Test Item Value Reference Range Interpretation Comments Hemoglobin (test code = 09345-3) 13.8 14.0-18.0 L [facility] CenterHematocrit2017-10-25 09:49:00* Test Item Value Reference Range Interpretation Comments Hematocrit (test code = 4544-3) 42.3 38.2-49.6 [facility] CenterMean Corpuscular Bykcft4659-88-87 09:49:00* Test Item Value Reference Range Interpretation Comments Mean Corpuscular Volume (test code = 787-2) 99.5 81-99 H [facility] CenterMean Corpuscular Fockpmbqcp7005-91-69 09:49:00* Test Item Value Reference Range Interpretation Comments Mean Corpuscular Hemoglobin (test code = 785-6) 32.5 28-32 H [facility] CenterMean Corpuscular Hemoglobin Concent 2017-09-11 09:49:00* Test Item Value Reference Range Interpretation Comments Mean Corpuscular Hemoglobin Concent (test code = 786-4) 32.6 31-35 [facility] CenterRed Cell Distribution Sgqer2705-46-73 09:49:00* Test Item Value Reference Range Interpretation Comments Red Cell Distribution Width (test code = 55083-6) 14.2 11.7 -14.4 [facility] CenterPlatelet Qsyuo2056-28-53 09:49:00* Test Item Value Reference Range Interpretation Comments Platelet Count (test code = 777-3) 152 140-360 [facility] CenterNeutrophils (%) (Auto)2017-09-11 09:49:00 * Test Item Value Reference Range Interpretation Comments Neutrophils (%) (Auto) (test code = 16957-6) 67.1 38.7-80.0 [facility] CenterLymphocytes (%) (Auto)2017-09-11 09:49:00 * Test Item Value Reference Range Interpretation Comments Lymphocytes (%) (Auto) (test code = 736-9) 19.7 18.0-39.1 [facility] CenterMonocytes (%) (Auto)2017-09-11 09:49:00* Test Item Value Reference Range Interpretation Comments Monocytes (%) (Auto) (test code = 5905-5) 8.2 4.4-11.3 [facility] CenterEosinophils (%) (Auto)2017-09-11 09:49:00 * Test Item Value Reference Range Interpretation Comments Eosinophils (%) (Auto) (test code = 713-8) 4.3 0.0-6.0 [facility] CenterBasophils (%) (Auto)2017-09-11 09:49:00* Test Item Value Reference Range Interpretation Comments Basophils (%) (Auto) (test code = 706-2) 0.6 0.0-1.0 [facility] CenterIM GRANULOCYTES %2017-09-11 09:49:00* Test Item Value Reference Range Interpretation Comments IM GRANULOCYTES % (test code = IM GRANULOCYTES %) 0.1 0.0- 1.0 [facility] CenterNeutrophils # (Auto)2017-09-11 09:49:00* Test Item Value Reference Range Interpretation Comments Neutrophils # (Auto) (test code = 751-8) 4.5 2.1-6.9 [facility] CenterLymphocytes # (Auto)2017-09-11 09:49:00* Test Item Value Reference Range Interpretation Comments Lymphocytes # (Auto) (test code = 75662-5) 1.3 1.0-3.2 [facility] CenterMonocytes # (Auto)2017-09-11 09:49:00* Test Item Value Reference Range Interpretation Comments Monocytes # (Auto) (test code = 742-7) 0.6 0.2-0.8 [facility] CenterEosinophils # (Auto)2017-09-11 09:49:00* Test Item Value Reference Range Interpretation Comments Eosinophils # (Auto) (test code = 711-2) 0.3 0.0-0.4 [facility] CenterBasophils # (Auto)2017-09-11 09:49:00* Test Item Value Reference Range Interpretation Comments Basophils # (Auto) (test code = 704-7) 0.0 0.0-0.1 [facility] CenterAbsolute Immature Granulocyte (auto 2017-09-11 09:49:00* Test Item Value Reference Range Interpretation Comments Absolute Immature Granulocyte (auto (tasha t code = Absolute Immature Granulocyte (auto) 0.01 0-0.1 [facility] CenterVancomycin Level Hbsnay6438-16-12 15:49:00* Test Item Value Reference Range Interpretation Comments Vancomycin Level Trough (test code = 4092-3) 8.1 5.0-10.0 [facility] CenterVancomycin Level Pthlpz7356-99-26 15:49:00* Test Item Value Reference Range Interpretation Comments Vancomycin Level Trough (test code = 4092-3) 8.1 5.0-10.0 [facility] CenterVancomycin Level Smancl1435-72-30 15:49:00* Test Item Value Reference Range Interpretation Comments Vancomycin Level Trough (test code = 4092-3) 8.1 5.0-10.0 [facility] CenterErythrocyte Sedimentation Brok0032-80-62 07:14:00* Test Item Value Reference Range Interpretation Comments Erythrocyte Sedimentation Rate (test code = 4537-7) 31 0- 13 H [facility] CenterErythrocyte Sedimentation Ksok2012-85-02 07:14:00* Test Item Value Reference Range Interpretation Comments Erythrocyte Sedimentation Rate (test code = 4537-7) 31 0- 13 H [facility] CenterErythrocyte Sedimentation Xtuw5330-53-95 07:14:00* Test Item Value Reference Range Interpretation Comments Erythrocyte Sedimentation Rate (test code = 4537-7) 31 0- 13 H [facility] CenterHemoglobin A1c Auqlmlc3834-77-86 07:12:00 * Test Item Value Reference Range Interpretation Comments Hemoglobin A1c Percent (test code = Hemoglobin A1c Percent) 5.6 4.0-7.0 [facility] CenterHemoglobin A1c Vcbujqi6016-41-06 07:12:00 * Test Item Value Reference Range Interpretation Comments Hemoglobin A1c Percent (test code = Hemoglobin A1c Percent) 5.6 4.0-7.0 [facility] CenterHemoglobin A1c Zpbdfoe6965-63-83 07:12:00 * Test Item Value Reference Range Interpretation Comments Hemoglobin A1c Percent (test code = Hemoglobin A1c Percent) 5.6 4.0-7.0 [facility] CenterCHEST 2 VIEWS [place] [address] Patient Name: ALISSA LOVE MR #: [id number] : 1940 Age/Sex: 77/M Req #: [id number] Adm Physician: Ordered by: NOAH MCADAMS DPM Report #: [id number] Location: OR Room/Bed: Procedure: [id number] DX/CHEST 2 VIEWS Exam Keith e: 09/11/17 Exam Time: 1015 REPORT STATUS: Sign ed PROCEDURE: X-RAY CHEST, TWO VIEWS COMPARISON: 01/21/2017. INDICATIONS: P REOPERATIVE CHEST XRAY FOR RIGHT FOOT SURGERY FINDINGS: The lungs remain well-inflated. Stable bilateral small pleural effusions versus focal b ibasilar pleural thickening. No airspace consolidation or pneumothorax. Stabl e appearance of left subclavian approach implantable cardiac device body and leads as well as postsurgical changes of the mediastinum including multiple s urgical clips and intact median sternotomy wires. No pulmonary edema. Heart size is at the upper limits of normal. Surgical clips are also noted projec ting over the left lower cervical region. No acute osseous abnormality. CONCLUSION: No acute cardiopulmonary abnormality. Dictated by: Tiffany Laureano M.D. on 09/11/2017 at 10:48 Electronically approved by: Valdez Laureano M.D. on 09/11/2017 at 10:48 Dictated By: TIFFANY LAUREANO MD 1048 Transcribed By: Anay TORIBIO on 09/11/17 1048 COPY TO: NOAH MCADAMS DPM
--- OUTSIDE RECORDS SUMMARY | 2020-04-15 16:18 | XMS REPORT | Continuity of Care Document ---
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 Role Phone [employer] Unavailable Un available Problems Problem Status Onset Date Classification Date Reported Comments Source Hypercholesterolemia Active Problem 11/01/2014 Carrol Mcclendon Occlusion and stenosis of carotid artery Active Problem 11/01/2014 Carrol Mcclendon CRI (chronic renal insufficiency) Active Problem Carrol Mcclendon AICD (automatic cardioverter/defibrillator) present Active Problem 11/01/2014 Carrol Mcclendon Abnormal ECG Active Problem 11/01/2014 Carrol Mcclendon Mitral regurgitation Active Problem 11/01/2014 Carrol Mcclendon Carotid artery disease Active Problem 11/01/2014 Carrol Mcclendon 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 graft Active Prob rohini 11/01/2014 Carrol Mcclendon Chronic systolic heart failure Active Problem Carrol Mcclendon 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 Problem 11/01/2014 Carrol Mcclendon Angina pectoris Active Problem 11/01/2014 Carrol Mcclendon Medications Medication Details Route Status Patient Instructions Ordering Provider Order Date Source Metoprolol Succinate 1 tablet by mouth Active 50 mg by mouth daily Jeroudi 10/05/2014 Carrol Mcclendon Allergies, Adverse Reactions, Alerts No Known Medication Allergies Immunizations No Data Provided for This Section Results No Data Provided for This Section Pathology Reports No Data Provided for This Section Diagnostic Reports No Data Provided for This Section Consultation Notes No Data Provided for This Section Discharge Summaries No Data Provided for This Section History and Physicals No Data Provided for This Section Vital Signs No Data Provided for This Section Encounters Location Location Details Encounter Type Encounter Number Reason For Visit Attending Provider ADM Date DC Date Status Source Carrol Mcclendon MD PA Unknown [id number] 10/11/20 14 10/11/2014 Carrol Mcclendon MD PA Unknown [id number] 10/11/20 14 10/11/2014 MD TERESA Yarbrough Unknown [id number] 11/25/19 15 11/25/2014 Carrol Mcclendon Procedures No Data Provided for This Section Assessment and Plan No Data Provided for This Section Plan of Care No Data Provided for This Section Social History Social History Date Source Social History ElementQualifiersDate Rep orted Smoking . Status Former Smoker Quit in 1974 Oct 05, 2014 Alcohol Use No. Oct 05, 2014 Alcohol Screening: No. Did you have a drink containing alcohol in the past year?: No, Points: 0, Interpretation: Negative Oct 05, 2014 Marital Status: . Oct 05, 2014 Do you drink alcohol? No. 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
[2020-04-15 18:44] LABS: BASOPHILS % 0.2 % (0.0-1.0); EOSINOPHILS # (AUTO) 0.1 (0.0-0.4); EOSINOPHILS % 1.3 % (0.0-6.0); HEMATOCRIT 38.6 % (38.2-49.6); HEMOGLOBIN 12.5 g/dL (14.0-18.0); LYMPHOCYTES # (AUTO) 0.6 (1.0-3.2); LYMPHOCYTES % 12.4 % (18.0-39.1); MEAN CORPUSCULAR HEMOGLOBIN 32.4 pg (28-32); MEAN CORPUSCULAR HGB CONC 32.4 g/dL (31-35); MONOCYTES # (AUTO) 0.5 (0.2-0.8); MONOCYTES % 10.2 % (4.4-11.3); NEUTROPHILS # (AUTO) 3.6 (2.1-6.9); NEUTROPHILS % 75.7 % (38.7-80.0); PLATELET COUNT 92 x10e3/uL (140-360); RED BLOOD COUNT 3.86 x10e6/uL (4.3-5.7); RED CELL DISTRIBUTION WIDTH 18.1 % (11.7-14.4)
--- NOTE | 2020-04-15 20:05 | Emergency Department Note ---
History of Present Illnes History of Present Illness Chief Complaint: General Medicine Complaints History of Present Illness This is a 79 year old male . Chief Complaint Comment Pt arrived to the ER with c/o SOB with exertion x1 month states progessively getting worse the past week. Denies any CP. Pt denies any fever or cough. states fluid to lower extremities with left foot more swollen. Reports hx of CHF. Reports going to Dr. Delarosa office and had an Outpt CXR done here today. Also reports decrease in kidney function. Historian: Patient Arrival Mode: Car Onset (how long ago): week(s) (1 wk) Radiation: non-radiation, back, neck, extremity, abdomen, periumbilical, flank, proximal, distal, other Severity: moderate Onset quality: gradual Duration (how long): week(s) (1 wk) Progression: worsening Context: recent illness, recent surgery, recent immobilization, recent travel, trauma/injury, new medications, hx of DVT/PE, non-compliance w/ medications, other Relieving factors: none Exacerbating factors: none Treatments prior to arrival: none Past Medical/Family History Physician Review I have reviewed the patient's past medical and family history. Any updates have been documented here. Past Medical History Recent Fever: No Clinical Suspicion of Infectio: No New/Unexplained Change in Ment: No Past Medical History: Hypertension, COPD, CHF, MO, GERD, Hyperlipedemia, Chronic Kidney Disease Other Medical History: Hyperlipidemia GERD GOUT Past Surgical History: Cholecysctectomy, CABG, Pacer/AICD Other Surgery: HEART STENTS X2 OPEN HEART X2 CAROYID SX Social History Smoking Cessation: Never Smoker Alcohol Use: None Any Illegal Drug Use: No TB Exposure/Symptoms: No Physically hurt or threatened: No Family History Family history of heart diseas: No Other Last Tetanus: 2009 Any Pre-Existing Lines (PICC,: No Review of Systems Review of Systems Constitutional: no symptoms EENTM: no symptoms Cardiovascular: no symptoms Respiratory: dyspnea Gastrointestinal: no symptoms Genitourinary: no symptoms Musculoskeletal: other (lower ext swelling ) Neurological: no symptoms Psychological: no symptoms Endocrine: no symptoms Hematological/Lymphatic: no symptoms Review of other systems All other systems reviewed and negative. Physical Exam Related Data Allergies: Coded Allergies: Penicillins (Verified Allergy, Unknown, rash, 02/03/19) morphine (Verified Allergy, Unknown, GETS CRAZY, 02/03/19) Triage Vital Signs Vital Signs Date Time Temp Pulse Resp B/P (MAP) Pulse Ox O2 Delivery O2 Flow Rate FiO2 04/15/20 17:13 97.5 65 20 107/67 99 Vital signs reviewed: Yes Physical Exam CONSTITUTIONAL Constitutional: well-developed, well-nourished HENT HENT: normocephalic, atraumatic, oropharynx clear/moist, nose normal HENT L/R: left ext ear normal, right ext ear normal EYES Eyes: PERRL, conjunctivae normal NECK Neck: ROM normal PULMONARY Pulmonary: effort normal, other (c/o sob w/ excertion hx chf ); breath sounds normal (lower lung simon deminished ) CARDIOVASCULAR Cardiovascular: regular rhythm, heart sounds normal, capillary refill normal, normal rate, LLE edema, RLE edema GASTROINTESTINAL Abdominal: soft, nontender, bowel sounds normal GENITOURINARY Genitourinary: exam deferred SKIN Skin: warm, dry MUSCULOSKELETAL Musculoskeletal: ROM normal NEUROLOGICAL Neurological: alert, oriented x 3, no gross motor or sensory deficits PSYCHOLOGICAL Psychological: mood/affect normal, judgement normal Results Laboratory Result Diagram: 04/15/20 1821 Laboratory Laboratory Tests Test 04/15/20 19:30 04/15/20 18:21 White Blood Count 4.69 x10e3/uL (4.8-10.8) Red Blood Count 3.86 x10e6/uL (4.3-5.7) Hemoglobin 12.5 g/dL (14.0-18.0) Hematocrit 38.6 % (38.2-49.6) Mean Corpuscular Volume 100.0 fL (81-99) Mean Corpuscular Hemoglobin 32.4 pg (28-32) Mean Corpuscular Hemoglobin Concent 32.4 g/dL (31-35) Red Cell Distribution Width 18.1 % (11.7-14.4) Platelet Count 92 x10e3/uL (140-360) Neutrophils (%) (Auto) 75.7 % (38.7-80.0) Lymphocytes (%) (Auto) 12.4 % (18.0-39.1) Monocytes (%) (Auto) 10.2 % (4.4-11.3) Eosinophils (%) (Auto) 1.3 % (0.0-6.0) Basophils (%) (Auto) 0.2 % (0.0-1.0) Neutrophils # (Auto) 3.6 (2.1-6.9) Lymphocytes # (Auto) 0.6 (1.0-3.2) Monocytes # (Auto) 0.5 (0.2-0.8) Eosinophils # (Auto) 0.1 (0.0-0.4) Basophils # (Auto) 0.0 (0.0-0.1) Absolute Immature Granulocyte (auto 0.01 x10e3/uL (0-0.1) B-Type Natriuretic Peptide 4416.3 pg/mL (0-100) Laboratory Tests Test 04/15/20 18:21 White Blood Count 4.69 x10e3/uL (4.8-10.8) Red Blood Count 3.86 x10e6/uL (4.3-5.7) Hemoglobin 12.5 g/dL (14.0-18.0) Hematocrit 38.6 % (38.2-49.6) Mean Corpuscular Volume 100.0 fL (81-99) Mean Corpuscular Hemoglobin 32.4 pg (28-32) Mean Corpuscular Hemoglobin Concent 32.4 g/dL (31-35) Red Cell Distribution Width 18.1 % (11.7-14.4) Platelet Count 92 x10e3/uL (140-360) Neutrophils (%) (Auto) 75.7 % (38.7-80.0) Lymphocytes (%) (Auto) 12.4 % (18.0-39.1) Monocytes (%) (Auto) 10.2 % (4.4-11.3) Eosinophils (%) (Auto) 1.3 % (0.0-6.0) Basophils (%) (Auto) 0.2 % (0.0-1.0) Neutrophils # (Auto) 3.6 (2.1-6.9) Lymphocytes # (Auto) 0.6 (1.0-3.2) Monocytes # (Auto) 0.5 (0.2-0.8) Eosinophils # (Auto) 0.1 (0.0-0.4) Basophils # (Auto) 0.0 (0.0-0.1) Absolute Immature Granulocyte (auto 0.01 x10e3/uL (0-0.1) B-Type Natriuretic Peptide 4416.3 pg/mL (0-100) Laboratory Tests Test 04/15/20 18:21 White Blood Count 4.69 x10e3/uL (4.8-10.8) Red Blood Count 3.86 x10e6/uL (4.3-5.7) Hemoglobin 12.5 g/dL (14.0-18.0) Hematocrit 38.6 % (38.2-49.6) Mean Corpuscular Volume 100.0 fL (81-99) Mean Corpuscular Hemoglobin 32.4 pg (28-32) Mean Corpuscular Hemoglobin Concent 32.4 g/dL (31-35) Red Cell Distribution Width 18.1 % (11.7-14.4) Platelet Count 92 x10e3/uL (140-360) Neutrophils (%) (Auto) 75.7 % (38.7-80.0) Lymphocytes (%) (Auto) 12.4 % (18.0-39.1) Monocytes (%) (Auto) 10.2 % (4.4-11.3) Eosinophils (%) (Auto) 1.3 % (0.0-6.0) Basophils (%) (Auto) 0.2 % (0.0-1.0) Neutrophils # (Auto) 3.6 (2.1-6.9) Lymphocytes # (Auto) 0.6 (1.0-3.2) Monocytes # (Auto) 0.5 (0.2-0.8) Eosinophils # (Auto) 0.1 (0.0-0.4) Basophils # (Auto) 0.0 (0.0-0.1) Absolute Immature Granulocyte (auto 0.01 x10e3/uL (0-0.1) B-Type Natriuretic Peptide 4416.3 pg/mL (0-100) Lab results reviewed: Yes Imaging Impressions IMPRESSION: Cardiomegaly and central pulmonary vascular congestion. Trace right pleural effusion. Mild bibasilar patchy opacities, most likely subsegmental atelectasis. Signed by: Ashish Mathews MD on 04/15/2020 3:27 PM Dictated By: ASHISH MATHEWS MD Transcribed By: ADAN on 04/15/20 1527 Critical Care Time Subsequent provider I assumed direction of critical care for this patient from another provider of my specialty. Assessment & Plan Reassessment Reassessment time: 20:03 Reassessment 79y m presented to ed c/o sob / lower ext swelling worsening x 1 wk - lab ekg ordered pt had out pt cxr earlier today here Assessment & Plan Final Impression: (1) CHF (congestive heart failure) Assessment & Plan discussed lab ekg cxr results plan of care and need for admit spoke w/ Dr Blair will admit Depart Disposition: ADMITTED Last Vital Signs Date Time Temp Pulse Resp B/P (MAP) Pulse Ox O2 Delivery O2 Flow Rate FiO2 04/15/20 17:13 97.5 65 20 107/67 99 Home Meds Reported Medications Rivaroxaban (XARELTO) 10 Mg Tablet, 15 MG PO DAILY 06/02/18 Simvastatin (SIMVASTATIN) 40 Mg Tablet, 40 MG PO 2100, #30 TAB 09/12/17 Potassium Chloride (POTASSIUM CHLORIDE) 8 Meq Tablet.er, 8 MEQ PO DAILY 06/15/16 Metoprolol Succinate (TOPROL XL) 25 Mg Tab.er.24h, 50 MG PO HS, #30 TAB 06/15/16 Furosemide (LASIX) 40 Mg Tablet, 40 MG PO DAILY, #30 TAB 06/15/16 Pantoprazole Sodium (PANTOPRAZOLE SODIUM) 20 Mg Tablet.dr, 40 MG PO ACB 10/06/13 Metoclopramide Hcl (REGLAN) 10 Mg Tablet, 10 MG PO HS 04/23/13 Aspirin (ASPIR 81) 81 Mg Tablet.dr, 81 MG PO DAILY 04/22/13 Physician Attestation Provider Attestation The patient's history, exam findings, diagnostics, and a summary of any interventions or procedures was reviewed in detail with our MIAH. I personally interviewed and examined the patient, and I have reviewed and agree with the HPI andexam. My personal exam shows ill-appearing 79-year-old age-appropriate male with bilateral lower extremity swelling, dry mucosa, bilateral breath sounds diminished in lower lobes. I confirm the diagnosis as documented by the MIAH. I have reviewed and agree with the care plan articulated in the disposition section. Patient given Lasix in the ED, urine output monitored. No concerns for infectious source/etiology at time of admission. Patient's symptoms appear to be cardiac in origin secondary to poor LV function. Cardiology to be consulted by primary medicine team. Discussed care with Dr. Hager accepted admission, patient admitted to inpatient unit on the general medical floor. VINNY TRAN DO April 15, 2020 20:05
[2020-04-15 21:07] LABS: BILIRUBIN,URINE NEGATIVE (NEGATIVE); CLARITY,URINE SL CLOUDY (CLEAR); COLOR,URINE YELLOW (YELLOW); KETONES,URINE NEGATIVE (NEGATIVE); LEUKOCYTE ESTERASE ,URINE NEGATIVE (NEGATIVE); NITRITE,URINE NEGATIVE (NEGATIVE); PROTEIN,URINE DIPSTICK NEGATIVE (NEGATIVE); URINE UROBILINOGEN 0.2 mg/dL (0.2 - 1)
[2020-04-15 21:19] LABS: BACTERIA,URINE MODERATE /HPF; EPITHELIAL CELLS,URINE MODERATE /LPF; HYALINE CASTS 0-1 (0-1)
--- OUTSIDE RECORDS SUMMARY | 2020-04-15 22:15 | XMS REPORT ---
Author Author [facility] t Organization [facility] Address 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 Name Role Phone BERNABE DÍAZ, GEETHA PCP Shanon WATERMANA Attphys Unavailable BURNS, OLGA Attphys Unavailable Beryl MCADAMS Attphys Unavailable BURNS, OLGA Admphys Unavailable Payers Payer Name Policy Type Policy Number Effective Date Expiration Date Yue Mckoy [id number] 2018 00:00:00 [facility] Problems Condition Name Condition Details Condition Category Status Onset Date Resolution Date Last Treatment Date Treating Clinician Comments Source Congestive heart failure CHF (congestive heart failure) Problem Active 2016-06-12 00:00:00 [facility] Hypercholesterolemia Hype rcholesterolemia Active Problem 11/01/2014 Mohamed [...] Allergy to Substance Active rash 2019-02-03 00:00:00 [facility] Morphine Allergy to Substance Active GETS CRAZY 2019-02-03 00:00:0 0 [facility] Social History Social Habit Start Date Stop Date Quantity Comments Source Smoking 2014-10-05 00:00:00 2014-10-05 00:00:00 [facility] Medications Ordered Medication Name Filled Medication Name Start Date Stop Da te Current Medication? Ordering Clinician Indication Dosage Frequency Signature (SIG) Comments Components Source Metoprolol Succinate 2014-10-05 00:00:00 Yes Carrol Mcclendon 1 tablet Carrol Mcclendon Aspirin (Aspir 81) 81 Mg Tablet. Aspirin (Aspir 81) 81 Mg Tablet. Yes 81 Daily [facility] Furosemide (Lasix) 40 Mg Tablet Furosemide (Lasix) 40 Mg Tablet Yes 40 Daily [facility] Metoclopramide Hcl (Reglan) 10 Mg Tablet Metoclopramid e Hcl (Reglan) 10 Mg Tablet Yes 10 Bedtime [facility] Metoprolol Succinate (Toprol Xl) 25 Mg Tab.er.24h Meto prolol Succinate (Toprol Xl) 25 Mg Tab.er.24h Yes 50 Bedtime [facility] Pantoprazole Sodium 20 Mg Tablet. Pantoprazole Sodium [address] Yes 40 Before Breakfast [facility] Potassium Chloride 8 Meq Tablet.er Potassium Chloride 8 Meq Tablet.er Yes 8 Daily [facility] Rivaroxaban (Xarelto) 10 Mg Tablet Rivaroxaban (Xarelto) 10 Mg Tablet Yes 15 Daily [facility] Simvastatin 40 Mg Tablet Simvastatin 40 Mg Tablet Yes 40 Today At 9:00PM [facility] Acetaminophen With Codeine (Tylenol With Codeine #3 Tablet) 1 Each Tablet, 300 Mg Oral Acetaminophen With Codeine (Tylenol With Codeine #3 Tablet) 1 Each Tablet, 300 Mg Oral 2018-06-02 00:00:00 No 300 As N eeded [facility] Metolazone 5 Mg Tablet, 2.5 Mg Oral Metolazone 5 Mg Tablet, 2.5 Mg Oral 2018-06-02 00:00:00 No 2.5 As Needed [facility] Simvastatin 40 Mg Tablet, 40 Mg Oral Simvastatin 40 Mg Tablet, 4 0 Mg Oral 2017-09-11 00:00:00 No 40 Daily [facility] Metolazone 2.5 Mg Tablet, 2.5 Mg Oral Metolazone 2.5 Mg Tablet, 2.5 Mg Oral 2017-06-18 00:00:00 No 2.5 Every Morning for El evated Blood Pressure [facility] Eliquis , 2.5 Mg Oral Eliquis , 2.5 Mg Oral 2017-01-21 00:00:00 No 2.5 Twice A Day [facility] Furosemide 20 Mg Tablet, 20 Mg Oral Furosemide 20 Mg Tablet, 20 Mg Oral 2016-06-15 00:00:00 No 20 Daily [facility] Losartan Potassium (Cozaar) 100 Mg Tablet, 100 Mg Oral Losartan Potassium (Cozaar) 100 Mg Tablet, 100 Mg Oral 2016-06-15 00:00:00 No 100 Daily [facility] Ticagrelor (Brilinta) 90 Mg Tablet, 60 Mg Oral Ticagre migel (Brilinta) 90 Mg Tablet, 60 Mg Oral 2016-06-15 00:00:00 No 60 Daily [facility] Carvedilol (Coreg) 6.25 Mg Tab, 6.25 Mg Oral Carvedilo l (Coreg) 6.25 Mg Tab, 6.25 Mg Oral 2016-06-12 00:00:00 No 6.25 Twice A Day [facility] Finasteride 5 Mg Tablet, 5 Mg Oral Finasteride 5 Mg Tablet, 5 Mg Oral 2016-06-12 00:00:00 No 5 Daily [facility] Omeprazole 40 Mg Capsule.dr, 40 Mg Oral Omeprazole 40 Mg Cap maryanne.dr, 40 Mg Oral 2016-06-12 00:00:00 No 40 Daily [facility] Ranitidine Hcl 300 Mg Tablet, 300 Mg Oral Ranitidine H cl 300 Mg Tablet, 300 Mg Oral 2016-06-12 00:00:00 No 300 Daily [facility] Ticlopidine Hcl 250 Mg Tablet, 250 Mg Oral Ticlopidine Hcl 250 Mg Tablet, 250 Mg Oral 2016-06-12 00:00:00 No 250 Twice A Day [facility] Tamsulosin Hcl (Flomax*) 0.4 Mg Cap, 0.4 Mg Oral Tamsu losin Hcl (Flomax*) 0.4 Mg Cap, 0.4 Mg Oral 2013-04-22 00:00:00 No .4 Daily [facility] Procedures Procedure Date / Time Performed Performing Clinician [facility] debby CATARACT SURGERY COMPLEX 2018-09-04 00:00:00 GRACIE FERREIRA CH, I [facility] CATARACT SURGERY COMPLEX 2018-06-19 00:00:00 GRACIE FERREIRA CH [facility] Encounters Start Date/Time End Date/Time Encounter Type [facility] Encounter ID Source 2019-02-03 17:20:00 2019-02-03 17:20:00 Admitted Inpatient (obs) 1 OLGA BURNS [facility] [id number] [facility] 2018-09-04 06:10:00 2018-09-04 06:10:00 Registered Surgical Day Care [facility] [id number] [facility] 2018-06-19 06:05:00 2018-06-19 06:05:00 Registered Surgical Day Care [facility] [id number] [facility] 2018-01-28 07:21:00 2018-02-15 23:59:00 Discharged Recurring [facility] [id number] [facility] 2017-12-31 07:55:00 2018-01-15 23:59:00 Discharged Recurring [facility] [id number] [facility] 2017-11-19 08:06:00 2017-12-18 23:59:00 Discharged Recurring [facility] [id number] [facility] 2017-10-22 08:04:00 2017-11-17 23:59:00 Discharged Recurring [facility] [id number] [facility] 2017-09-24 07:56:00 2017-10-17 23:59:00 Discharged Recurring [facility] [id number] [facility] 2017-08-20 07:58:00 2017-09-17 23:59:00 Discharged Recurring [facility] [id number] [facility] 2017-09-12 05:40:00 2017-09-12 05:40:00 Registered Surgical Day Car NAOH Trujillo [facility] [id number] [facility] 2017-07-23 07:59:00 2017-08-17 23:59:00 Discharged Recurring [facility] [id number] [facility] 2017-06-25 07:53:00 2017-07-18 23:59:00 Discharged Recurring [facility] [id number] [facility] 2017-06-12 13:45:00 2017-06-19 17:00:00 Discharged Inpatient [facility] [id number] [facility] 2017-05-28 07:58:00 2017-06-17 23:59:00 Discharged Recurring [facility] [id number] [facility] 2017-05-30 14:56:00 2017-05-30 14:56:00 Registered Clinic [facility] [id number] [facility] 2017-05-14 07:11:00 2017-05-17 23:59:00 Discharged Recurring [facility] [id number] [facility] 2014-11-25 18:30:00 2014-11-25 18:30:00 Unknown MD TERESA York [id number] Carrol Mcclendon 2014-11-25 12:30:00 2014-11-25 12:30:00 [place] [id number] [employer] 2014-10-11 17:37:00 2014-10-11 17:37:00 Unknown MD TERESA York [id number] Carrol Mcclendon 2014-10-11 17:37:00 2014-10-11 17:37:00 Unknown MD TERESA York [id number] Carrol Mcclendon 2014-10-11 11:37:00 2014-10-11 11:37:00 [place] [id number] [employer] Results Test Description Test Time Test Comments Results Result Comments Source CHEST 2 VIEWS 2020-04-15 15:24:00 [facility] [address] [place] [address] Patient Name: ALISSA LOVE MR #: [id number] : 1940 Age/Sex: 79/M Req #: [id number] Adm Physician: Ordered by: AMAYA WATERMAN MD Report #: [id number] Location: [facility] Room/Bed: Procedure: [id number] DX/CHEST 2 VIEWS Exam Date: 04/15/20 Exam [...] Item Creatine Kinase MB (test code = 81327-1) 2.30 0-5.0 [facility] [id number] 07:58:00* Test Item Value Reference Range Interpretation Comments Troponin I (test code = UYN7873) 0.052 0-0.300 [facility] Ymrqq3754-75-60 07:50:00* Test Item Value Reference Range Interpretation Comments Sodium Level (test code = 2951-2) 143 136-145 [facility] Eikjm3760-81-21 07:50:00* Test Item Value Reference Range Interpretation Comments Potassium Level (test code = 2823-3) 4.2 3.5-5.1 [facility] HospitalChloride Magvb2580-66-97 07:50:00* Test Item Value Reference Range Interpretation Comments Chloride Level (test code = 2075-0) 104 98-107 [facility] HospitalCarbon Dioxide Awbtp0908-96-45 07:50:00* Test Item Value Reference Range Interpretation Comments Carbon Dioxide Level (test code = 2028-9) 27 22-29 [facility] HospitalAnion [id number] 07:50:00* Test Item Value Reference Range Interpretation Comments Anion Gap (test code = 33767-3) 16.2 8-16 H [facility] HospitalBlood Urea Ucztoesl6819-32-96 07:50:00* Test Item Value Reference Range Interpretation Comments Blood Urea Nitrogen (test code = 3094-0) 52 7-26 H [facility] HospitalCreatinine2019-03-20 07:50:00* Test Item Value Reference Range Interpretation Comments Creatinine (test code = 2160-0) 2.08 0.72-1.25 H [facility] HospitalBUN/Creatinine Zkcoi1473-50-55 07:50:00* Test Item Value Reference Range Interpretation Comments BUN/Creatinine Ratio (test code = 3097-3) 25 6-25 [facility] HospitalEstimat Glomerular Filtration Rate 2019-02-04 07:50:00* Test Item Value Reference Range Interpretation Comments Estimat Glomerular Filtration Rate (test code = 408992963) 31 >60 L Ranges were taken from the National Kidney Disease Education Program and the [facility] literature.Reference ranges:60 or greater: Gjcrfc68-79 ( for 3 consecutive months): Chronic kidney disease 15 or less: Kidney failureAspire Behavioral Health HospitalGlucose Jhlxa2024-58-65 07:50:00* Test Item Value Reference Range Interpretation Comments Glucose Level (test code = LHD3624) 74 74-118 [facility] HospitalCalcium Lshnd7108-19-63 07:50:00* Test Item Value Reference Range Interpretation Comments Calcium Level (test code = 72904-7) 9.3 8.4-10.2 [facility] HospitalCreatine Zkpavz9524-72-00 07:50:00* Test Item Value Reference Range Interpretation Comments Creatine Kinase (test code = 2157-6) 55 30-200 [facility] HospitalWhite Blood Qjzjk7628-98-24 06:59:00* Test Item Value Reference Range Interpretation Comments White Blood Count (test code = 6690-2) 4.86 4.8-10.8 [facility] HospitalRed Blood Pgbte4871-32-95 06:59:00* Test Item Value Reference Range Interpretation Comments Red Blood Count (test code = 789-8) 4.04 4.3-5.7 L [facility] HospitalHemoglobin2019-03-20 06:59:00* Test Item Value Reference Range Interpretation Comments Hemoglobin (test code = 15926-5) 12.9 14.0-18.0 L [facility] HospitalHematocrit2019-03-20 06:59:00* Test Item Value Reference Range Interpretation Comments Hematocrit (test code = 4544-3) 39.9 38.2-49.6 [facility] HospitalMean Corpuscular Ubcfdj8662-62-71 06:59:00* Test Item Value Reference Range Interpretation Comments Mean Corpuscular Volume (test code = 787-2) 98.8 81-99 [facility] HospitalMean Corpuscular Orqhwpszxw7735-27-58 06:59:00* Test Item Value Reference Range Interpretation Comments Mean Corpuscular Hemoglobin (test code = 785-6) 31.9 28-32 [facility] HospitalMean Corpuscular Hemoglobin Concent 2019-02-04 06:59:00* Test Item Value Reference Range Interpretation Comments Mean Corpuscular Hemoglobin Concent (test code = 786-4) 32.3 31-35 [facility] HospitalRed Cell Distribution Vfdvv4978-17-66 06:59:00* Test Item Value Reference Range Interpretation Comments Red Cell Distribution Width (test code = 28593-8) 15.8 11.7 -14.4 H [facility] HospitalPlatelet Dpnku5215-43-25 06:59:00* Test Item Value Reference Range Interpretation Comments Platelet Count (test code = 777-3) 105 140-360 L [facility] HospitalNeutrophils (%) (Auto)2019-02-04 06:59:00 * Test Item Value Reference Range Interpretation Comments Neutrophils (%) (Auto) (test code = 61309-6) 67.5 38.7-80.0 [facility] HospitalLymphocytes (%) (Auto)2019-02-04 06:59:00 * Test Item Value Reference Range Interpretation Comments Lymphocytes (%) (Auto) (test code = 736-9) 19.1 18.0-39.1 [facility] HospitalMonocytes (%) (Auto)2019-02-04 06:59:00* Test Item Value Reference Range Interpretation Comments Monocytes (%) (Auto) (test code = 5905-5) 9.9 4.4-11.3 [facility] HospitalEosinophils (%) (Auto)2019-02-04 06:59:00 * Test Item Value Reference Range Interpretation Comments Eosinophils (%) (Auto) (test code = 713-8) 2.9 0.0-6.0 [facility] HospitalBasophils (%) (Auto)2019-02-04 06:59:00* Test Item Value Reference Range Interpretation Comments Basophils (%) (Auto) (test code = 706-2) 0.4 0.0-1.0 [facility] HospitalIM GRANULOCYTES %2019-02-04 06:59:00* Test Item Value Reference Range Interpretation Comments IM GRANULOCYTES % (test code = IM GRANULOCYTES %) 0.2 0.0- 1.0 [facility] HospitalNeutrophils # (Auto)2019-02-04 06:59:00* Test Item Value Reference Range Interpretation Comments Neutrophils # (Auto) (test code = 751-8) 3.3 2.1-6.9 [facility] HospitalLymphocytes # (Auto)2019-02-04 06:59:00* Test Item Value Reference Range Interpretation Comments Lymphocytes # (Auto) (test code = 93457-6) 0.9 1.0-3.2 L [facility] HospitalMonocytes # (Auto)2019-02-04 06:59:00* Test Item Value Reference Range Interpretation Comments Monocytes # (Auto) (test code = 742-7) 0.5 0.2-0.8 [facility] HospitalEosinophils # (Auto)2019-02-04 06:59:00* Test Item Value Reference Range Interpretation Comments Eosinophils # (Auto) (test code = 711-2) 0.1 0.0-0.4 [facility] HospitalBasophils # (Auto)2019-02-04 06:59:00* Test Item Value Reference Range Interpretation Comments Basophils # (Auto) (test code = 704-7) 0.0 0.0-0.1 [facility] HospitalAbsolute Immature Granulocyte (auto 2019-02-04 06:59:00* Test Item Value Reference Range Interpretation Comments Absolute Immature Granulocyte (auto (tasha t code = Absolute Immature Granulocyte (auto) 0.01 0-0.1 [facility] HospitalCHEST SINGLE (PORTABLE)2019-02-04 06:02:00 [facility] [address] [place] [address] Patient Name: ALISSA LOVE MR #: [id number] : 1940 Age/Sex: 78/M Req #: [id number] Adm Physician: OLGA BURNS MD Ordered by: EDWARDO MCCLELLAN MD Report #: [id number] Location: MED/SURG Room/Bed: 103-1 Procedure: [id number] DX/CHEST SINGLE (PORTABLE) Exam Date: 02/04/19 Exam [...] EDWARDO MCCLELLAN MD CHEST SINGLE (PORTABLE)2019-02-03 15:24:00 [place] [address] Patient Name: ALISSA LOVE MR #: [id number] : 1940 Age/Sex: 78/M Req #: [id number] Adm Physician: Ordered by: EDWARDO MCCLELLAN MD Report #: [id number] Location: Room/Bed: Procedure: [id number] DX/CHEST SINGLE (PORTABLE) Exam Date: 02/03/19 Exam [...] PY TO: EDWARDO MCCLELLAN MD B-Type Natriuretic Xzqyjnr5933-54-55 15:06:00* Test Item Value Reference Range Interpretation Comments B-Type Natriuretic Peptide (test code = 18099-2) 2230.0 0-100 H [facility] HospitalTotal Itpdxhqpu6638-53-28 15:01:00* Test Item Value Reference Range Interpretation Comments Total Bilirubin (test code = 1975-2) 1.3 0.2-1.2 H [facility] HospitalAspartate Amino Transf (AST/SGOT) 2019-02-03 15:01:00* Test Item Value Reference Range Interpretation Comments Aspartate Amino Transf (AST/SGOT) (test code = Aspartate Amino Transf (AST/SGOT)) 32 5-34 [facility] HospitalAlanine Aminotransferase (ALT/SGPT) 2019-02-03 15:01:00* Test Item Value Reference Range Interpretation Comments Alanine Aminotransferase (ALT/SGPT) (test code = 1742-6) 19 0-55 [facility] HospitalTotal Cjnhops1614-38-75 15:01:00* Test Item Value Reference Range Interpretation Comments Total Protein (test code = 2885-2) 7.4 6.5-8.1 [facility] HospitalAlbumin2019-03-19 15:01:00* Test Item Value Reference Range Interpretation Comments Albumin (test code = 1751-7) 4.0 3.5-5.0 [facility] HospitalGlobulin2019-03-19 15:01:00* Test Item Value Reference Range Interpretation Comments Globulin (test code = 47269-7) 3.4 2.3-3.5 [facility] HospitalAlbumin/Globulin Ootyd1538-31-81 15:01:00 * Test Item Value Reference Range Interpretation Comments Albumin/Globulin Ratio (test code = 1759-0) 1.2 0.8-2.0 [facility] HospitalAlkaline Ocfrqkcpalk0165-49-10 15:01:00* Test Item Value Reference Range Interpretation Comments Alkaline Phosphatase (test code = 6768-6) 82 40-150 [facility] HospitalProthrombin Xivc5423-11-31 14:54:00* Test Item Value Reference Range Interpretation Comments Prothrombin Time (test code = 5902-2) 15.4 11.9-14.5 H [facility] HospitalProthromb Time International Ratio 2019-02-03 14:54:00* Test Item Value Reference Range Interpretation Comments Prothromb Time International Ratio (test code = 6301-6) 1.16 Oral Anticoagulant Therapy INR Values:1. Low Intensity Therapy 1.5 - 2.02 . Moderate Intensity Therapy 2.0 - 3.03. High Intensity Therapy(1) 2.5 - 3. 54. High Intensity Therapy(2) 3.0 - 4.05. Panic Value INR > 5.0 [facility] HospitalActivated Partial Thromboplast Time 2019-02-03 14:54:00* Test Item Value Reference Range Interpretation Comments Activated Partial Thromboplast Time (test code = 22170-8) 33.5 23.8-35.5 [facility] HospitalUrine YXL1470-46-81 14:50:00* Test Item Value Reference Range Interpretation Comments Urine WBC (test code = 5821-4) NONE 0-5 [facility] HospitalUrine PUK8023-52-08 14:50:00* Test Item Value Reference Range Interpretation Comments Urine RBC (test code = 46624-6) NONE 0-5 [facility] HospitalUrine Toyrzycr7892-04-79 14:50:00* Test Item Value Reference Range Interpretation Comments Urine Bacteria (test code = 49931-3) MODERATE NONE H [facility] HospitalUrine Epithelial Ifjgn1135-87-94 14:50:00 * Test Item Value Reference Range Interpretation Comments Urine Epithelial Cells (test code = 20723-3) RARE NONE [facility] HospitalUrine Hyaline Bvzbh4618-16-20 14:50:00* Test Item Value Reference Range Interpretation Comments Urine Hyaline Casts (test code = 97577-2) 2-5 0-1 H [facility] HospitalUrine Qvoul4716-24-52 14:40:00* Test Item Value Reference Range Interpretation Comments Urine Color (test code = 5778-6) YELLOW YELLOW [facility] HospitalUrine Fglhghw3447-30-27 14:40:00* Test Item Value Reference Range Interpretation Comments Urine Clarity (test code = 26565-3) CLEAR CLEAR [facility] HospitalUrine Specific Dcxhmbw5403-67-57 14:40:00 * Test Item Value Reference Range Interpretation Comments Urine Specific [place] (test code = 5811-5) 1.015 1.010-1.02 5 [facility] HospitalUrine fQ9995-15-06 14:40:00* Test Item Value Reference Range Interpretation Comments Urine pH (test code = 50337-1) 6 5-7 [facility] HospitalU[facility] Leukocyte Rimazacm2402-39-00 14:40:00* Test Item Value Reference Range Interpretation Comments Urine Leukocyte Esterase (test code = 5799-2) NEGATIVE NEGATIVE [facility] HospitalUrine Htrztob1698-54-60 14:40:00* Test Item Value Reference Range Interpretation Comments Urine Nitrite (test code = 67537-9) NEGATIVE NEGATIVE [facility] HospitalUrine Gvzndew0361-07-05 14:40:00* Test Item Value Reference Range Interpretation Comments Urine Protein (test code = 5804-0) 2+ NEGATIVE H [facility] HospitalUrine Glucose (UA)2019-02-03 14:40:00* Test Item Value Reference Range Interpretation Comments Urine Glucose (UA) (test code = 2349-9) NEGATIVE NEGATIVE [facility] Ssfbosi7988-37-07 14:40:00* Test Item Value Reference Range Interpretation Comments Urine Ketones (test code = 07190-5) NEGATIVE NEGATIVE [facility] Tjmzxvmeolnm7134-78-46 14:40:00* Test Item Value Reference Range Interpretation Comments Urine Urobilinogen (test code = 19797-9) 0.2 0.2-1 [facility] Ausjmfcje3881-70-33 14:40:00* Test Item Value Reference Range Interpretation Comments Urine Bilirubin (test code = 1978-6) NEGATIVE NEGATIVE [facility] Mggsk1136-60-15 14:40:00* Test Item Value Reference Range Interpretation Comments Urine Blood (test code = 75158-0) NEGATIVE NEGATIVE [facility] Zkhnuqk5271-00-06 14:24:00* Test Item Value Reference Range Interpretation Comments Wound Culture (test code = 6462-6) Organism: ENTEROCOCCUS FAECALIS [facility] Qwhwkqx2361-22-51 14:24:00* Test Item Value Reference Range Interpretation Comments Wound Culture (test code = 6462-6) Organism: ENTEROCOCCUS FAECALIS [facility] Ymhtnso1916-81-93 14:34:00* Test Item Value Reference Range Interpretation Comments Bedside Glucose (test code = 43598-4) 101 70-120 Meter ID: [id number] Regional Hospital Glucose 2017-10-22 14:34:00* Test Item Value Reference Range Interpretation Comments Bedside Glucose (test code = 20411-5) 101 70-120 Meter ID: [id number] Regional Hospital Glucose 2017-10-22 14:34:00* Test Item Value Reference Range Interpretation Comments Bedside Glucose (test code = 11618-6) 101 70-120 Meter ID: [id number] Behavioral Health HospitalBacteria identification in wound by afsphxa6330-74-38 15:31:00* Test Item Value Reference Range Interpretation Comments Wound Culture (test code = 6462-6) Organism: STAPHYLOCOCCUS AUREUS [facility] HospitalPotassium Gpgss1762-91-19 13:36:00* Test Item Value Reference Range Interpretation Comments Potassium Level (test code = 2823-3) 4.2 3.5-5.1 [facility] HospitalPotassium Ynbxz1613-12-48 13:36:00* Test Item Value Reference Range Interpretation Comments Potassium Level (test code = 2823-3) 4.2 3.5-5.1 [facility] Xirbo1809-99-97 13:36:00* Test Item Value Reference Range Interpretation Comments Potassium Level (test code = 2823-3) 4.2 3.5-5.1 [facility] Hjdjm6792-71-62 10:46:00* Test Item Value Reference Range Interpretation Comments Sodium Level (test code = 2951-2) 147 136-145 H [facility] HospitalChloride Vixiz9979-21-08 10:46:00* Test Item Value Reference Range Interpretation Comments Chloride Level (test code = 2075-0) 107 98-107 [facility] HospitalCarbon Dioxide Hekod9467-21-97 10:46:00* Test Item Value Reference Range Interpretation Comments Carbon Dioxide Level (test code = 2028-9) 29 22-29 [facility] HospitalAnion Xzi4188-82-97 10:46:00* Test Item Value Reference Range Interpretation Comments Anion Gap (test code = 87380-6) 17.3 8-16 H [facility] HospitalBlood Urea Dxnrmqhe1821-77-37 10:46:00* Test Item Value Reference Range Interpretation Comments Blood Urea Nitrogen (test code = 3094-0) 24 7-26 [facility] HospitalCreatinine2017-10-25 10:46:00* Test Item Value Reference Range Interpretation Comments Creatinine (test code = 2160-0) 1.43 0.72-1.25 [facility] HospitalBUN/Creatinine Ofhci6980-00-23 10:46:00* Test Item Value Reference Range Interpretation Comments BUN/Creatinine Ratio (test code = 3097-3) 17 6-25 [facility] HospitalEstimat Glomerular Filtration Rate 2017-09-11 10:46:00* Test Item Value Reference Range Interpretation Comments Estimat Glomerular Filtration Rate (test code = 05495-1) 48 >60 L Ranges were taken from the National Kidney Disease Education Program and the [facility] literature.Reference ranges:60 or greater: Szdchj90-04 ( for 3 consecutive months): Chronic kidney disease 15 or less: Kidney failureAspire Behavioral Health HospitalGlucose Bnhsf3248-34-79 10:46:00* Test Item Value Reference Range Interpretation Comments Glucose Level (test code = CQY8609) 105 74-118 [facility] HospitalCalcium Gdcps5940-64-30 10:46:00* Test Item Value Reference Range Interpretation Comments Calcium Level (test code = 74766-7) 10.0 8.4-10.2 [facility] Ehbin8819-88-21 10:46:00* Test Item Value Reference Range Interpretation Comments Sodium Level (test code = 2951-2) 147 136-145 H [facility] HospitalChloride Yrucb7740-56-15 10:46:00* Test Item Value Reference Range Interpretation Comments Chloride Level (test code = 2075-0) 107 98-107 [facility] HospitalCarbon Dioxide Grmyg2141-67-57 10:46:00* Test Item Value Reference Range Interpretation Comments Carbon Dioxide Level (test code = 2028-9) 29 22-29 [facility] HospitalAnion Tah2044-56-71 10:46:00* Test Item Value Reference Range Interpretation Comments Anion Gap (test code = 50229-9) 17.3 8-16 H [facility] HospitalBlood Urea Pvoxwnsa3591-60-10 10:46:00* Test Item Value Reference Range Interpretation Comments Blood Urea Nitrogen (test code = 3094-0) 24 7-26 [facility] HospitalCreatinine2017-10-25 10:46:00* Test Item Value Reference Range Interpretation Comments Creatinine (test code = 2160-0) 1.43 0.72-1.25 H [facility] HospitalBUN/Creatinine Jwjqr0317-73-32 10:46:00* Test Item Value Reference Range Interpretation Comments BUN/Creatinine Ratio (test code = 3097-3) 17 6-25 [facility] HospitalEstimat Glomerular Filtration Rate 2017-09-11 10:46:00* Test Item Value Reference Range Interpretation Comments Estimat Glomerular Filtration Rate (test code = 64679-5) 48 >60 L Ranges were taken from the National Kidney Disease Education Program and the [facility] Foundation literature.Reference ranges:60 or greater: Ikrgwh20-92 ( for 3 consecutive months): Chronic kidney disease 15 or less: Kidney failureAspire Behavioral Health HospitalGlucose Obkhf3766-25-54 10:46:00* Test Item Value Reference Range Interpretation Comments Glucose Level (test code = MCU8165) 105 74-118 [facility] HospitalCalcium Hehsu5949-76-17 10:46:00* Test Item Value Reference Range Interpretation Comments Calcium Level (test code = 10855-4) 10.0 8.4-10.2 [facility] Fyxkn7379-34-92 10:46:00* Test Item Value Reference Range Interpretation Comments Sodium Level (test code = 2951-2) 147 136-145 [facility] HospitalChloride Egvqn4514-53-87 10:46:00* Test Item Value Reference Range Interpretation Comments Chloride Level (test code = 2075-0) 107 98-107 [facility] HospitalCarbon Dioxide Vcztr3434-61-11 10:46:00* Test Item Value Reference Range Interpretation Comments Carbon Dioxide Level (test code = 2028-9) 29 22-29 [facility] HospitalAnion Ean1747-85-09 10:46:00* Test Item Value Reference Range Interpretation Comments Anion Gap (test code = 98431-1) 17.3 8-16 H [facility] HospitalBlood Urea Jgyfpmth0221-88-09 10:46:00* Test Item Value Reference Range Interpretation Comments Blood Urea Nitrogen (test code = 3094-0) 24 7- [facility] HospitalCreatinine2017-10-25 10:46:00* Test Item Value Reference Range Interpretation Comments Creatinine (test code = 2160-0) 1.43 0.72-1.25 [facility] HospitalBUN/Creatinine Xmdhk3487-49-31 10:46:00* Test Item Value Reference Range Interpretation Comments BUN/Creatinine Ratio (test code = 3097-3) 17 05-12 [facility] HospitalEstimat Glomerular Filtration Rate 2017-09-11 10:46:00* Test Item Value Reference Range Interpretation Comments Estimat Glomerular Filtration Rate (test code = 25548-8) 48 >60 L Ranges were taken from the National Kidney Disease Education Program and the [facility] literature.Reference ranges:60 or greater: Mgtggy82-12 ( for 3 consecutive months): Chronic kidney disease 15 or less: Kidney failureAspire Behavioral Health HospitalGlucose Eupbf9467-65-27 10:46:00* Test Item Value Reference Range Interpretation Comments Glucose Level (test code = MQY8864) 105 74-118 [facility] HospitalCalcium Fskyr3070-95-70 10:46:00* Test Item Value Reference Range Interpretation Comments Calcium Level (test code = 39222-5) 10.0 8.4-10.2 [facility] HospitalWhite Blood Ixerc5553-69-59 09:49:00* Test Item Value Reference Range Interpretation Comments White Blood Count (test code = 6690-2) 6.71 4.8-10.8 [facility] HospitalRed Blood Petwo0451-75-54 09:49:00* Test Item Value Reference Range Interpretation Comments Red Blood Count (test code = 789-8) 4.25 4.3-5.7 L [facility] HospitalHemoglobin2017-10-25 09:49:00* Test Item Value Reference Range Interpretation Comments Hemoglobin (test code = 37558-4) 13.8 14.0-18.0 L [facility] HospitalHematocrit2017-10-25 09:49:00* Test Item Value Reference Range Interpretation Comments Hematocrit (test code = 4544-3) 42.3 38.2-49.6 [facility] HospitalMean Corpuscular Tqoiop8140-06-42 09:49:00* Test Item Value Reference Range Interpretation Comments Mean Corpuscular Volume (test code = 787-2) 99.5 81-99 H [facility] HospitalMean Corpuscular Cfhzmygbvk0997-98-75 09:49:00* Test Item Value Reference Range Interpretation Comments Mean Corpuscular Hemoglobin (test code = 785-6) 32.5 28-32 H [facility] HospitalMean Corpuscular Hemoglobin Concent 2017-09-11 09:49:00* Test Item Value Reference Range Interpretation Comments Mean Corpuscular Hemoglobin Concent (test code = 786-4) 32.6 31-35 [facility] HospitalRed Cell Distribution Awrvv2549-07-58 09:49:00* Test Item Value Reference Range Interpretation Comments Red Cell Distribution Width (test code = 35850-3) 14.2 11.7 -14.4 [facility] HospitalPlatelet Skaox6663-26-00 09:49:00* Test Item Value Reference Range Interpretation Comments Platelet Count (test code = 777-3) 152 140-360 [facility] HospitalNeutrophils (%) (Auto)2017-09-11 09:49:00 * Test Item Value Reference Range Interpretation Comments Neutrophils (%) (Auto) (test code = 66611-3) 67.1 38.7-80.0 [facility] HospitalLymphocytes (%) (Auto)2017-09-11 09:49:00 * Test Item Value Reference Range Interpretation Comments Lymphocytes (%) (Auto) (test code = 736-9) 19.7 18.0-39.1 [facility] HospitalMonocytes (%) (Auto)2017-09-11 09:49:00* Test Item Value Reference Range Interpretation Comments Monocytes (%) (Auto) (test code = 5905-5) 8.2 4.4-11.3 [facility] HospitalEosinophils (%) (Auto)2017-09-11 09:49:00 * Test Item Value Reference Range Interpretation Comments Eosinophils (%) (Auto) (test code = 713-8) 4.3 0.0-6.0 [facility] HospitalBasophils (%) (Auto)2017-09-11 09:49:00* Test Item Value Reference Range Interpretation Comments Basophils (%) (Auto) (test code = 706-2) 0.6 0.0-1.0 [facility] HospitalIM GRANULOCYTES %2017-09-11 09:49:00* Test Item Value Reference Range Interpretation Comments IM GRANULOCYTES % (test code = IM GRANULOCYTES %) 0.1 0.0- 1.0 [facility] HospitalNeutrophils # (Auto)2017-09-11 09:49:00* Test Item Value Reference Range Interpretation Comments Neutrophils # (Auto) (test code = 751-8) 4.5 2.1-6.9 [facility] HospitalLymphocytes # (Auto)2017-09-11 09:49:00* Test Item Value Reference Range Interpretation Comments Lymphocytes # (Auto) (test code = 69757-2) 1.3 1.0-3.2 [facility] HospitalMonocytes # (Auto)2017-09-11 09:49:00* Test Item Value Reference Range Interpretation Comments Monocytes # (Auto) (test code = 742-7) 0.6 0.2-0.8 [facility] HospitalEosinophils # (Auto)2017-09-11 09:49:00* Test Item Value Reference Range Interpretation Comments Eosinophils # (Auto) (test code = 711-2) 0.3 0.0-0.4 [facility] HospitalBasophils # (Auto)2017-09-11 09:49:00* Test Item Value Reference Range Interpretation Comments Basophils # (Auto) (test code = 704-7) 0.0 0.0-0.1 [facility] HospitalAbsolute Immature Granulocyte (auto 2017-09-11 09:49:00* Test Item Value Reference Range Interpretation Comments Absolute Immature Granulocyte (auto (tasha t code = Absolute Immature Granulocyte (auto) 0.01 0-0.1 [facility] HospitalWhite Blood Mxujj2836-87-29 09:49:00* Test Item Value Reference Range Interpretation Comments White Blood Count (test code = 6690-2) 6.71 4.8-10.8 [facility] HospitalRed Blood Rngsa2495-16-53 09:49:00* Test Item Value Reference Range Interpretation Comments Red Blood Count (test code = 789-8) 4.25 4.3-5.7 L [facility] HospitalHemoglobin2017-10-25 09:49:00* Test Item Value Reference Range Interpretation Comments Hemoglobin (test code = 85416-9) 13.8 14.0-18.0 L [facility] HospitalHematocrit2017-10-25 09:49:00* Test Item Value Reference Range Interpretation Comments Hematocrit (test code = 4544-3) 42.3 38.2-49.6 [facility] HospitalMean Corpuscular Umuwvw1354-24-83 09:49:00* Test Item Value Reference Range Interpretation Comments Mean Corpuscular Volume (test code = 787-2) 99.5 81-99 H [facility] HospitalMean Corpuscular Saxqcqzklc9880-45-87 09:49:00* Test Item Value Reference Range Interpretation Comments Mean Corpuscular Hemoglobin (test code = 785-6) 32.5 28-32 H [facility] HospitalMean Corpuscular Hemoglobin Concent 2017-09-11 09:49:00* Test Item Value Reference Range Interpretation Comments Mean Corpuscular Hemoglobin Concent (test code = 786-4) 32.6 31-35 [facility] HospitalRed Cell Distribution Mieru7505-45-57 09:49:00* Test Item Value Reference Range Interpretation Comments Red Cell Distribution Width (test code = 58520-0) 14.2 11.7 -14.4 [facility] HospitalPlatelet Mxfyy1294-49-91 09:49:00* Test Item Value Reference Range Interpretation Comments Platelet Count (test code = 777-3) 152 140-360 [facility] HospitalNeutrophils (%) (Auto)2017-09-11 09:49:00 * Test Item Value Reference Range Interpretation Comments Neutrophils (%) (Auto) (test code = 78632-3) 67.1 38.7-80.0 [facility] HospitalLymphocytes (%) (Auto)2017-09-11 09:49:00 * Test Item Value Reference Range Interpretation Comments Lymphocytes (%) (Auto) (test code = 736-9) 19.7 18.0-39.1 [facility] HospitalMonocytes (%) (Auto)2017-09-11 09:49:00* Test Item Value Reference Range Interpretation Comments Monocytes (%) (Auto) (test code = 5905-5) 8.2 4.4-11.3 [facility] HospitalEosinophils (%) (Auto)2017-09-11 09:49:00 * Test Item Value Reference Range Interpretation Comments Eosinophils (%) (Auto) (test code = 713-8) 4.3 0.0-6.0 [facility] HospitalBasophils (%) (Auto)2017-09-11 09:49:00* Test Item Value Reference Range Interpretation Comments Basophils (%) (Auto) (test code = 706-2) 0.6 0.0-1.0 [facility] HospitalIM GRANULOCYTES %2017-09-11 09:49:00* Test Item Value Reference Range Interpretation Comments IM GRANULOCYTES % (test code = IM GRANULOCYTES %) 0.1 0.0- 1.0 [facility] HospitalNeutrophils # (Auto)2017-09-11 09:49:00* Test Item Value Reference Range Interpretation Comments Neutrophils # (Auto) (test code = 751-8) 4.5 2.1-6.9 [facility] HospitalLymphocytes # (Auto)2017-09-11 09:49:00* Test Item Value Reference Range Interpretation Comments Lymphocytes # (Auto) (test code = 51504-6) 1.3 1.0-3.2 [facility] HospitalMonocytes # (Auto)2017-09-11 09:49:00* Test Item Value Reference Range Interpretation Comments Monocytes # (Auto) (test code = 742-7) 0.6 0.2-0.8 [facility] HospitalEosinophils # (Auto)2017-09-11 09:49:00* Test Item Value Reference Range Interpretation Comments Eosinophils # (Auto) (test code = 711-2) 0.3 0.0-0.4 [facility] HospitalBasophils # (Auto)2017-09-11 09:49:00* Test Item Value Reference Range Interpretation Comments Basophils # (Auto) (test code = 704-7) 0.0 0.0-0.1 [facility] HospitalAbsolute Immature Granulocyte (auto 2017-09-11 09:49:00* Test Item Value Reference Range Interpretation Comments Absolute Immature Granulocyte (auto (tasha t code = Absolute Immature Granulocyte (auto) 0.01 0-0.1 [facility] HospitalWhite Blood Ztpnx9581-95-06 09:49:00* Test Item Value Reference Range Interpretation Comments White Blood Count (test code = 6690-2) 6.71 4.8-10.8 [facility] HospitalRed Blood Hyetd7153-32-83 09:49:00* Test Item Value Reference Range Interpretation Comments Red Blood Count (test code = 789-8) 4.25 4.3-5.7 L [facility] HospitalHemoglobin2017-10-25 09:49:00* Test Item Value Reference Range Interpretation Comments Hemoglobin (test code = 34868-1) 13.8 14.0-18.0 L [facility] HospitalHematocrit2017-10-25 09:49:00* Test Item Value Reference Range Interpretation Comments Hematocrit (test code = 4544-3) 42.3 38.2-49.6 [facility] HospitalMean Corpuscular Fbelrb3694-58-97 09:49:00* Test Item Value Reference Range Interpretation Comments Mean Corpuscular Volume (test code = 787-2) 99.5 81-99 H [facility] HospitalMean Corpuscular Afxwslzrwc7770-88-29 09:49:00* Test Item Value Reference Range Interpretation Comments Mean Corpuscular Hemoglobin (test code = 785-6) 32.5 28-32 H [facility] HospitalMean Corpuscular Hemoglobin Concent 2017-09-11 09:49:00* Test Item Value Reference Range Interpretation Comments Mean Corpuscular Hemoglobin Concent (test code = 786-4) 32.6 31-35 [facility] HospitalRed Cell Distribution Lfkyc0818-88-75 09:49:00* Test Item Value Reference Range Interpretation Comments Red Cell Distribution Width (test code = 35920-7) 14.2 11.7 -14.4 [facility] HospitalPlatelet Yvpzh1658-17-36 09:49:00* Test Item Value Reference Range Interpretation Comments Platelet Count (test code = 777-3) 152 140-360 [facility] HospitalNeutrophils (%) (Auto)2017-09-11 09:49:00 * Test Item Value Reference Range Interpretation Comments Neutrophils (%) (Auto) (test code = 01918-2) 67.1 38.7-80.0 [facility] HospitalLymphocytes (%) (Auto)2017-09-11 09:49:00 * Test Item Value Reference Range Interpretation Comments Lymphocytes (%) (Auto) (test code = 736-9) 19.7 18.0-39.1 [facility] HospitalMonocytes (%) (Auto)2017-09-11 09:49:00* Test Item Value Reference Range Interpretation Comments Monocytes (%) (Auto) (test code = 5905-5) 8.2 4.4-11.3 [facility] HospitalEosinophils (%) (Auto)2017-09-11 09:49:00 * Test Item Value Reference Range Interpretation Comments Eosinophils (%) (Auto) (test code = 713-8) 4.3 0.0-6.0 [facility] HospitalBasophils (%) (Auto)2017-09-11 09:49:00* Test Item Value Reference Range Interpretation Comments Basophils (%) (Auto) (test code = 706-2) 0.6 0.0-1.0 [facility] HospitalIM GRANULOCYTES %2017-09-11 09:49:00* Test Item Value Reference Range Interpretation Comments IM GRANULOCYTES % (test code = IM GRANULOCYTES %) 0.1 0.0- 1.0 [facility] HospitalNeutrophils # (Auto)2017-09-11 09:49:00* Test Item Value Reference Range Interpretation Comments Neutrophils # (Auto) (test code = 751-8) 4.5 2.1-6.9 [facility] HospitalLymphocytes # (Auto)2017-09-11 09:49:00* Test Item Value Reference Range Interpretation Comments Lymphocytes # (Auto) (test code = 05020-7) 1.3 1.0-3.2 [facility] HospitalMonocytes # (Auto)2017-09-11 09:49:00* Test Item Value Reference Range Interpretation Comments Monocytes # (Auto) (test code = 742-7) 0.6 0.2-0.8 [facility] HospitalEosinophils # (Auto)2017-09-11 09:49:00* Test Item Value Reference Range Interpretation Comments Eosinophils # (Auto) (test code = 711-2) 0.3 0.0-0.4 [facility] HospitalBasophils # (Auto)2017-09-11 09:49:00* Test Item Value Reference Range Interpretation Comments Basophils # (Auto) (test code = 704-7) 0.0 0.0-0.1 [facility] HospitalAbsolute Immature Granulocyte (auto 2017-09-11 09:49:00* Test Item Value Reference Range Interpretation Comments Absolute Immature Granulocyte (auto (tasha t code = Absolute Immature Granulocyte (auto) 0.01 0-0.1 [facility] HospitalVancomycin Level Ykyium8092-52-70 15:49:00* Test Item Value Reference Range Interpretation Comments Vancomycin Level Trough (test code = 4092-3) 8.1 5.0-10.0 [facility] HospitalVancomycin Level Ejrgdp1524-34-57 15:49:00* Test Item Value Reference Range Interpretation Comments Vancomycin Level Trough (test code = 4092-3) 8.1 5.0-10.0 [facility] HospitalVancomycin Level Skgocs5116-67-68 15:49:00* Test Item Value Reference Range Interpretation Comments Vancomycin Level Trough (test code = 4092-3) 8.1 5.0-10.0 [facility] HospitalErythrocyte Sedimentation Geqm3679-77-91 07:14:00* Test Item Value Reference Range Interpretation Comments Erythrocyte Sedimentation Rate (test code = 4537-7) 31 0- 13 H [facility] HospitalErythrocyte Sedimentation Svjs4335-56-18 07:14:00* Test Item Value Reference Range Interpretation Comments Erythrocyte Sedimentation Rate (test code = 4537-7) 31 0- 13 H [facility] HospitalErythrocyte Sedimentation Wknv2918-29-07 07:14:00* Test Item Value Reference Range Interpretation Comments Erythrocyte Sedimentation Rate (test code = 4537-7) 31 0- 13 H [facility] HospitalHemoglobin A1c Iqvrxcz8573-41-46 07:12:00 * Test Item Value Reference Range Interpretation Comments Hemoglobin A1c Percent (test code = Hemoglobin A1c Percent) 5.6 4.0-7.0 [facility] HospitalHemoglobin A1c Exdradq3088-36-39 07:12:00 * Test Item Value Reference Range Interpretation Comments Hemoglobin A1c Percent (test code = Hemoglobin A1c Percent) 5.6 4.0-7.0 [facility] HospitalHemoglobin A1c Sunqoyo5834-96-39 07:12:00 * Test Item Value Reference Range Interpretation Comments Hemoglobin A1c Percent (test code = Hemoglobin A1c Percent) 5.6 4.0-7.0 [facility] HospitalCHEST 2 VIEWS [place] [address] Patient Name: ALISSA LOVE MR #: [id number] : 1940 Age/Sex: 77/M Req #: [id number] Adm Physician: Ordered by: NOAH MCADAMS DPM Report #: [id number] Location: OR Room/Bed: Procedure: [id number] DX/CHEST 2 VIEWS Exam Keith e: 09/11/17 [...]
--- OUTSIDE RECORDS SUMMARY | 2020-04-15 22:15 | XMS REPORT | Continuity of Care Document ---
[facility] Address Unknown Phone Unavailable Care Team Providers Care Premium Service Representative Name Role Phone [employer] Unavailable Un available Problems Problem [...] Status Source Carrol Mcclendon MD PA Unknown [id number] 10/11/20 14 10/11/2014 Carrol Mcclendon MD PA Unknown [id number] 10/11/20 14 10/11/2014 MD ETRESA Yarbrough Unknown [id number] 11/25/19 15 11/25/2014 Carrol Mcclendon Procedures No [...]
[2020-04-15 22:50] LABS: INR 3.4
[2020-04-15 22:51] LABS: PARTIAL THROMBOPLASTIN TIME 45.9 seconds (23.8-35.5)
[2020-04-15 23:00] LABS: ALBUMIN 3.8 g/dL (3.5-5.0); ANION GAP 17.6 mmol/L (8-16); CALCIUM 9.8 mg/dL (8.4-10.2); CREATININE, SERUM 3.52 mg/dL (0.72-1.25); POTASSIUM 5.6 mmol/L (3.5-5.1)
[2020-04-15 23:07] LABS: CREATINE KINASE MB 4.1 ng/mL (0-5.0)
[2020-04-15] MEDS: FUROSEMIDE INJ 10 MG/ML 4 ML VIAL IV SCH (23:53)
[2020-04-16] VITALS (10 sets, daily range): BP systolic 102–117; BP diastolic 51–72
--- NOTE | 2020-04-16 00:28 | NUR ---
Patient arrived to unit via wheelchair. No s/s of distress at this time. All safety measures in place. Will continue to monitor.
--- NOTE | 2020-04-16 01:30 | NUR ---
Spoke to daughter (Ludy) on the phone and reviewed home medications.
[2020-04-16] MEDS ORDERED: FUROSEMIDE40 MG PO (01:41)
[2020-04-16] MEDS ORDERED: POTASSIUM CHLO10 ME1 PO (01:41)
[2020-04-16] MEDS ORDERED: XARELTO15 MG PO (01:41)
[2020-04-16] MEDS ORDERED: ALLOPURINOL100 MG PO (01:41)
[2020-04-16] MEDS ORDERED: TRAZODONE HCL50 MG PO (01:41)
[2020-04-16] MEDS ORDERED: PANTOPRAZOLE SO40 MG PO (01:41)
[2020-04-16] MEDS ORDERED: NITROGLYCERIN0.4 MG SL (02:36)
--- NOTE | 2020-04-16 06:48 | NUR ---
Paged Dr. Blair to ask if he wants to consult Dr. Gardner, patient's herb grower, and resume home meds. Addendum: 04/16/20 at 0648 by Elba Alejandro RN Awaiting return call at this time.
--- NOTE | 2020-04-16 06:57 | NUR ---
Spoke to Dr. Blair and received orders to consult Dr. Gardner, and to resume all home meds except Lasix, which is already ordered for IV, metoprolol, and nitro.
--- NOTE | 2020-04-16 07:01 | NUR ---
Bedside report given to day nurse. Patient awake and resting in bed, no s/s of distress. All safety measures in place.
--- NOTE | 2020-04-16 07:44 | Diagnostic Imaging Report ---
EXAMINATION: CHEST SINGLE (PORTABLE) INDICATION: Shortness of breath COMPARISON: Chest radiograph 02/04/2019. FINDINGS: LINES/TUBES:Left chest AICD with leads overlying the right atrium and right ventricle. LUNGS: Mild patchy bibasilar opacities left greater than right. Central vascular congestion. PLEURA:Trace bilateral pleural effusions. No pneumothorax. MEDIASTINUM:Cardiomediastinal silhouette is stably enlarged. Atherosclerotic calcifications of the thoracic aorta. Postoperative findings of prior CABG. BONES/SOFT TISSUES:No acute osseous abnormality. Sternotomy wires in place. ABDOMEN:No free air under the diaphragm. IMPRESSION: Cardiomegaly and central pulmonary vascular congestion. Trace bilateral pleural effusions with bibasilar opacities, likely atelectasis, although aspiration is possible in the appropriate clinical setting. Signed by: Dr. Johnny Cross MD on 04/16/2020 7:41 AM
--- NOTE | 2020-04-16 07:56 | NUR ---
ASSUMED CARE AT APPROXIMATELY 0715. AWAKE AND ALERT. ACYANOTIC. NO DISTRESS NOTED. CALL LIGHT IN REACH. SIDE RAILS UP X2. BED LOW.
[2020-04-16] MEDS: FUROSEMIDE INJ 10 MG/ML 4 ML VIAL IV SCH ×2 (08:40→17:31)
[2020-04-16] MEDS: PANTOPRAZOLE SOD 40 MG TABEC PO SCH ×2 (08:40→17:31)
[2020-04-16] MEDS: ALLOPURINOL 100 MG TAB PO SCH (08:40)
[2020-04-16] MEDS: RIVAROXABAN 15 MG TABLET PO SCH ×2 (08:40→17:31)
[2020-04-16] MEDS: POTASSIUM CHLORIDE 10MEQ EA PO SCH ×2 (08:54→16:45)
[2020-04-16 10:12] LABS: CREATINE KINASE MB 3.8 ng/mL (0-5.0)
--- NOTE | 2020-04-16 15:21 | NUR ---
Nutrition Intervention Note RD Recommendation(s) for Physician: -Recommend to continue cardiac diet -Ensure Compact with meals for added nutrition The patient meets criteria for unspecified SEVERE protein-calorie malnutrition. Plan of Care: RD following, monitoring for tolerance and adequacy Nutrition reason for involvement: Nutrition Risk Trigger MST [address] (04/16/20) Pt is an 79 year old female admitted with CHF. Spoke to family member and pt. Family member translated information for patient. Pt has been eating about 50% of his meals for the past 5 weeks per family member. She also mentioned pt had lost weight and had weighed 138 lbs 5-6 weeks ago. Pt currently has a weight of 134 lbs in chart. This is considered nonsignificant weight loss. No N/V/D/C noted. Family member also stated pt was on a 32 oz fluid restriction prior to admission. Recommend Ensure Compact with meals for added nutrition. Will continue to monitor. Principal Problems/Diagnoses: CHF PMH: afib, HTN, systolic CHF, CAD, kidney stones, HLD, GERD GI: flat, soft, nontender abdomen Skin: intact Labs: (04/16) Na 137, K 5.6, BUN 100, Cr 3.52, Glu 97, Total Bili 1.5, Ca 9.8 Meds: protonix, lasix, KCl, simvastatin Ht: 69 inches Wt: 134 lbs BMI: 19.8 kg/m2 IBW: 160 lbs Malnutrition Evaluation (04/16/20) The patient meets criteria for unspecified SEVERE protein-calorie malnutrition. Energy intake: <75% of estimated energy requirements for 1 month Weight loss: Not significant Fat loss: moderate/severe orbital region (hollowed eyes). pt also had some fat loss in tricep region Muscle loss: moderate temporal region, moderate/severe clavicle region Supporting Evidence: Fluid accumulation: fluid accumulation identified in lower extremities Functional Status: unable to assess Nutrition Prescription (Diet Order): cardiac Estimated Nutritional Needs: 8712-5181 calories/day (25-35 kcal/kg CBW) 60-90 g protein/day (1-1.5 g pro/kg CBW) Diet Adequacy: Not meeting calorie needs, Not meeting protein needs Tolerance: Tolerating PO Diet Education Needs Assessment: Family member declined the need for diet education for the patient Nutrition Care Level: moderate Nutrition Diagnosis: Severe malnutrition related to chronic illness as evidenced by pt meeting <75% of estimated energy needs for 1 month and moderate/severe muscle and fat depletion. Goal: Patient will meet 75-100% of estimated needs by follow up Progress: N/A Interventions: -fat/cholesterol/sodium -modified diet, Commercial beverage Monitoring/Evaluation: -Total energy intake, Total protein intake, Modified diet, Liquid supplement, Weight change Signed: Maine Dumont RD, LAURA Addendum: 04/16/20 at 1632 by Maine Dumont DIET Calorie needs correction: 1520 - 2130 kcal/day (25-35 kcal/kg)
[2020-04-16 16:57] LABS: CREATINE KINASE MB 3.4 ng/mL (0-5.0)
[2020-04-16] MEDS ORDERED: SOD POLYSTYRENE SULFONATE SUSP 15 GM/60 ML BTL PO NR (18:30)
[2020-04-16 18:48] LABS: ANION GAP 19.6 mmol/L (8-16); CALCIUM 9.2 mg/dL (8.4-10.2); CREATININE, SERUM 3.13 mg/dL (0.72-1.25); POTASSIUM 4.6 mmol/L (3.5-5.1)
--- NOTE | 2020-04-16 19:25 | NUR ---
received report from day nurse. patient is resting comfortably in the bed. bed is in the lowest position and call corbin is within reach. will continue to monitor patient.
[2020-04-16] MEDS: SIMVASTATIN 40 MG TAB PO SCH (20:24)
[2020-04-16] MEDS: TRAZODONE HCL 50 MG TAB PO SCH (20:24)
[2020-04-17] VITALS (8 sets, daily range): BP systolic 92–128; BP diastolic 61–95
--- NOTE | 2020-04-17 00:21 | History and Physical ---
CHIEF COMPLAINT: Shortness of breath and swelling of the legs. HISTORY OF PRESENT ILLNESS: An 79-year-old gentleman with a known history of multiple medical problems including CHF, coronary artery disease, previous myocardial infarction, COPD, hypertension, hyperlipidemia, and chronic kidney disease, who presented to the emergency department complaining of increased shortness of breath over the course of last month. The symptoms have been aggravated in the last week and complain of swelling on the legs. He has been complaining of a dry cough. Denies fever, no chills. No abdominal pain, nausea and vomiting. The patient presented to the emergency room department for further evaluation and treatment. The patient at the time of the arrival had a blood pressure of 107/67, respirations 20, pulse 65, and temperature 97.5. Chest x-rays done demonstrating cardiomegaly and central vascular congestion. Trace bilateral pleural effusion with bibasilar opacities likely atelectasis. Aspiration was considered. Lab data from admission disclosed hemoglobin 12.5, white blood cell count 4.69, and platelet count 92,000. Chemistry profile did reveal a sodium 137, potassium 5.6, chloride 103, CO2 of 22, BUN 100, creatinine 3.52. The patient looks very debilitated. He was able to provide most of the medical history, which was corroborated with the ER evaluation. The patient also does have a history of previous coronary artery bypass graft surgery, status post AICD placement and pacemaker insertion. Previous heart stents. Previous coronary artery bypass graft surgery, previous carotid surgery and previous heart stents x2. SOCIAL HISTORY: No smoking. No alcohol abuse. FAMILY HISTORY: Noncontributory. ALLERGIES: PER CHART. REVIEW OF SYSTEMS: CONSTITUTIONAL: Denies fever or chills. Feels weak. CARDIOVASCULAR: Denies having chest pain. However, complaining swelling of the legs and dyspnea and orthopnea. RESPIRATORY: Complaining of an exertional dyspnea and dry cough. No hemoptysis. GI: No nausea. No vomiting. No diarrhea. No other pain. No hematemesis. No melena. GENITOURINARY: No dysuria, hematuria, or frequency. NEUROLOGIC: Nonfocal. PSYCHOLOGICAL: No symptoms. PHYSICAL EXAMINATION: GENERAL: The patient who was alert, follow was properly seems to be in mild distress. NEW VITAL SIGNS: Blood pressure 104/57, respiration 18, pulse 56, and temperature 97.4. HEENT: Normocephalic and atraumatic. Extraocular motors are intact. NECK: Supple. No JVD could be noted. LUNGS: Decreased breathing sounds. HEART: Regular rate and rhythm. ABDOMEN: Soft and nontender. EXTREMITIES: 3+ edema noted. Blister formation noted on the left foot. LABORATORY DATA: Lab data said as above. MEDICATIONS: Today at time of admission as per medication list. The patient has been on the following medications; Xarelto 15 mg p.o. daily, simvastatin 40 mg p.o. daily, potassium chloride 8 mEq p.o. daily, metoprolol succinate 25 mg q.24 hours, Lasix 40 mg p.o. daily and pantoprazole, Reglan, and aspirin. ASSESSMENT: 1. Congestive heart failure. The patient with no history of coronary disease status post coronary artery bypass graft surgery. 2. Chronic renal failure, possible with superimposed acute. 3. History of hypertension. 4. Hyperlipidemia. 5. Chronic obstructive pulmonary disease, status post coronary artery bypass graft surgery. 6. Status post AICD. 7. Previous heart stent. 8. Status post cholecystectomy. 9. Post carotid surgery. PLAN OF CARE: Reconcile home medications. Monitor Is and Os. IV diuresis. Consult cardiology. Monitoring of COVID-19 has been advised. Follow up with pulmonary function and kidney function. MD BLADIMIR Meza/KENZIE /[id number] MTDMando
[2020-04-17 06:29] LABS: ANION GAP 15.8 mmol/L (8-16); CREATININE, SERUM 3.1 mg/dL (0.72-1.25); MAGNESIUM 2.5 MG/DL (1.3-2.1); PHOSPHORUS 4.4 MG/DL (2.3-4.7); POTASSIUM 3.8 mmol/L (3.5-5.1)
--- NOTE | 2020-04-17 06:36 | NUR ---
patient is resting comfortably in the bed. bed is in lowest position and call light is within reach.
--- NOTE | 2020-04-17 07:26 | NUR ---
ASSUMED CARE. RESTING IN BED WITH EYES CLOSED. O2 AT 2L VIA NASAL CANNULA. ACYANOTIC. NO DISTRESS NOTED. CALL LIGHT IN REACH. SIDE RAILS UP X2. BED LOW.
[2020-04-17] MEDS: RIVAROXABAN 15 MG TABLET PO SCH ×2 (08:29→16:21)
[2020-04-17] MEDS: ALLOPURINOL 100 MG TAB PO SCH (08:29)
[2020-04-17] MEDS: PANTOPRAZOLE SOD 40 MG TABEC PO SCH ×2 (08:29→16:21)
[2020-04-17] MEDS: METOPROLOL SUCCINATE 25 MG TAB XL PO SCH (08:30)
[2020-04-17] MEDS: FUROSEMIDE INJ 10 MG/ML 4 ML VIAL IV SCH ×2 (09:00→16:21)
--- NOTE | 2020-04-17 14:08 | Progress Note ---
DATE: Cardiology Progress Note SUBJECTIVE: The patient is mildly confused. Cannot really obtain review of systems. The patient's daughter states that he has been stable. OBJECTIVE: VITAL SIGNS: Temperature 96.6, heart rate is 90, respirations 16, blood pressure is 90/68, oxygen saturation 98% on 2 L nasal cannula. GENERAL: He is a chronically ill-appearing elderly man seated at bedside, mildly confused. NECK: Jugular venous distention present. CARDIOVASCULAR: Irregular rhythm. Systolic murmur at the left sternal border. LUNGS: Diminished breath sounds at bases. EXTREMITIES: 2+ pitting edema at the ankles. SKIN: Fluid-filled blister on his left foot. CARDIOVASCULAR MEDICATIONS: Reviewed. LABORATORY DATA: Reviewed. TELEMETRY: Monitoring personally reviewed and shows atrial fibrillation with a ventricular paced rhythm. ASSESSMENT: 1. Acute on chronic systolic congestive heart failure. 2. Peripheral edema. 3. Chronic kidney disease. 4. Chronic obstructive pulmonary disease. 5. Coronary artery disease, status post bypass surgery. 6. Presence of implantable cardioverter-defibrillator. PLAN: Continue intravenous diuresis. This was held today due to mild hypotension. The patient is relatively asymptomatic from his hypertension, so we will go ahead and give the Lasix. I have asked them to consult wound care for his fluid-filled blisters. Continue monitor creatinine and urinary outputs. No evidence of acute coronary syndrome at this time. We will continue to follow along with you. Román Craig DO BM/MODL /[id number]
[2020-04-17] MEDS: TRAZODONE HCL 50 MG TAB PO SCH (20:29)
[2020-04-17] MEDS: SIMVASTATIN 40 MG TAB PO SCH (20:29)
[2020-04-17 22:34] LABS: CREATININE,URINE RANDOM 57.15 mg/dL (63-166)
[2020-04-17 23:07] LABS: SODIUM,URINE < 20 mmol/L
[2020-04-18] VITALS (7 sets, daily range): BP systolic 99–121; BP diastolic 59–74
--- NOTE | 2020-04-18 01:25 | Consultation ---
DATE OF CONSULTATION: 04/17/2020 Renal Consultation Note: REQUESTING PHYSICIAN: Aramis Blair MD. REASON FOR CONSULTATION: 1. Elevated serum creatinine. 2. Fluid, electrolyte, and acid-base management. HISTORY OF PRESENT ILLNESS: This is an 79-year-old man with history of: 1. Hypertension. 2. Coronary artery disease. 3. Congestive heart failure. 4. Dyslipidemia. 5. COPD. 6. Chronic kidney disease. 7. Coronary artery stent placement. 8. Coronary artery bypass surgery. 9. Carotid artery surgery. 10. Peripheral arterial disease. 11. AICD placement. 12. Pacemaker placement. The patient was admitted to [facility] for fluid overload and abnormal renal indices after he presented with chief complaint of worsening shortness of breath and swelling. He is on IV Lasix. Nephrology consultation has been requested for elevated serum creatinine, fluid, electrolyte, and acid-base management. His labs on admission showed serum creatinine of 3.5, which has improved to 3.10 today. BUN is 99. No report of chest pain, nausea, vomiting, diarrhea, fever, dysuria, or headache at the present time. PAST MEDICAL HISTORY: As per HPI. PAST SURGICAL HISTORY: As per HPI. ALLERGIES: PER MAR. MEDICATIONS: Per MAR. SOCIAL HISTORY: Negative x 3. FAMILY HISTORY: Negative for kidney disease. REVIEW OF SYSTEMS: Positive for shortness of breath and swelling on admission as per HPI. Rest of the review of systems essentially negative at the present time with no complaints of chest pain, nausea, vomiting, diarrhea, fever, or headache. PHYSICAL EXAMINATION: GENERAL: The patient is in bed, in no acute respiratory distress at the present time. VITAL SIGNS: Blood pressure is 105/77, pulse 83, respiratory rate 13, input and out noted. HEENT: Head; atraumatic, normocephalic. NECK: Supple. CHEST/LUNGS: With decreased breath sounds at the bases. CARDIOVASCULAR: S1 and S2 heard. ABDOMEN: Soft. EXTREMITIES: Positive edema. NEUROLOGIC: Awake and alert. PSYCHIATRIC: Flat affect. LABORATORY DATA: Serum sodium 141, potassium 3.8, chloride 105, bicarbonate 24, BUN 99, creatinine 3.1, calcium 9.0, phosphorus 4.4, magnesium 2.5, hb 12.5, WBC 4.6, & platelet count 92. Chest x-ray findings noted. ASSESSMENT: 1. Acute kidney injury on chronic kidney disease. 2. Fluid overload. 3. Acidosis-improved. 4. Pancytopenia. 5. Congestive heart failure. 6. Coronary artery disease. 7. Hypertension. PLAN: 1. Differential for acute kidney injury on chronic kidney disease includes prerenal/cardiorenal +/- acute tubular necrosis. Will check renal ultrasound to evaluate the kidneys and rule out obstruction. Serum creatinine is improving. We will continue to monitor the renal indices and urine output. 2. Will check UA + microscopic analysis, and urine sodium and urine creatinine levels. 3. Serum electrolytes are stable. Monitor. 4. Acidosis - improved. Monitor serum bicarbonate level. 5. Monitor serum calcium, phosphorus, and magnesium levels. 6. Strict I's and O's and daily weights. 7. Renally dose all medications. 8. Avoid NSAIDs except aspirin. 9. No JOSEPHINE inhibitor/ARB for now. 10. Continue IV Lasix + low salt diet + strict I's and O's and daily weights. 11. Monitor CBC. 12. Blood pressure is stable. Monitor. 13. Presently, there is no acute indication for hemodialysis. We will continue to closely monitor renal function, volume status, serum electrolytes, urine output, and acid-base status. 14. Congestive heart failure/coronary artery disease. Per Cardiology. Thank you for the interesting consult. We will continue to closely follow the patient with you. Please do not hesitate to call for any further questions. MD USHA Cohen/KENZIE /[id number] JORGE A
--- NOTE | 2020-04-18 02:45 | Progress Note ---
DATE: 04/17/2020 SUBJECTIVE: The patient was seen and evaluated on April 10, 2020. The patient has been complaining of shortness of breath. No chest pain. No pain. No nausea, no vomiting. No diarrhea. No report of fever or chills. OBJECTIVE: GENERAL: The patient has been alert, oriented, and complains of pain. The patient in no apparent distress. VITAL SIGNS: Blood pressure 128/63, respirations 19, pulse 104, temperature 98.7. Physical examination is essentially unchanged. LABORATORY DATA: Sodium 141, potassium 3.9, chloride 105, CO2 of 24. BUN 99, creatinine 3.10, magnesium level 2.5 cm. ASSESSMENT: 1. Congestive heart failure. 2. Status post coronary artery bypass graft surgery. 3. Left ventricular dysfunction with an ejection fraction of 20%. 4. Status post ICD placed. 5. Chronic obstructive pulmonary disease. 6. Previous heart stent. PLAN OF CARE: Continue present care. Continue diureses. Renal consultation requested. Cardiology evaluation noted. Continue to monitor creatinine. Continue to monitor urinary output. There is no evidence of acute coronary syndrome. The patient looks stable at this time related to CHF. No need for wound care and consultation on this time. We will follow closely. MD BLADIMIR Meza/KENZIE /[id number] MTDD
[2020-04-18 05:27] LABS: ANION GAP 14.1 mmol/L (8-16); CALCIUM 8.7 mg/dL (8.4-10.2); CREATININE, SERUM 2.6 mg/dL (0.72-1.25); MAGNESIUM 2.3 MG/DL (1.3-2.1); POTASSIUM 3.1 mmol/L (3.5-5.1)
--- NOTE | 2020-04-18 07:02 | NUR ---
BEDSIDE SHIFT REPORT RECEIVED FROM SCREEN PRINTING MACHINE OPERATOR HELPER RN. PT AWAKE, ALERT, IN STABLE CONDITION.
--- NOTE | 2020-04-18 08:14 | NUR ---
POTASSIUM OF 3.1 NOTED; PAGING MD FOR ORDERS.
--- NOTE | 2020-04-18 08:15 | NUR ---
PAGED DR. EBENEZER PETE REGARING POTASSIUM LAB RESULTS TODAY IN THE AM. AWAITING CALLBACK.
[2020-04-18] MEDS ORDERED: POTASSIUM CHLORIDE 20MEQ/100ML 200 ML IV ONE (09:15)
--- NOTE | 2020-04-18 09:19 | Diagnostic Imaging Report ---
EXAM: Renal Ultrasound INDICATION: Renal failure COMPARISON: None TECHNIQUE: Transverse and longitudinal images of the kidneys and bladder were obtained. FINDINGS: Right Kidney: Size: 10.3 x 4.3 x 4.6 cm Echogenicity: Increased Parenchymal thickness: Normal Collecting system: No hydronephrosis Stones: None Cyst/Mass: 1.2 x 0.9 cm lower pole simple cyst Left Kidney: Size: 7.8 x 5.3 x 4.6 cm Echogenicity: Increased Parenchymal thickness: Normal Collecting system: No hydronephrosis Stones: None Cyst/Mass: None Bladder: Normal The prostate gland is enlarged. Mild right upper quadrant and pelvic ascites. IMPRESSION: 1. Increased echogenicity of the kidneys consistent with medical renal disease. 2. Right upper quadrant and pelvic ascites. Signed by: Chet Oneal MD on 04/18/2020 9:16 AM
[2020-04-18] MEDS: ALLOPURINOL 100 MG TAB PO SCH (09:45)
[2020-04-18] MEDS: RIVAROXABAN 15 MG TABLET PO SCH (09:46)
[2020-04-18] MEDS: METOPROLOL SUCCINATE 25 MG TAB XL PO SCH (09:47)
[2020-04-18] MEDS ORDERED: SODIUM CHLORIDE 0.9% 250ML 250 ML ONE (09:48)
[2020-04-18] MEDS: PANTOPRAZOLE SOD 40 MG TABEC PO SCH ×2 (09:48→17:10)
[2020-04-18] MEDS: FUROSEMIDE INJ 10 MG/ML 4 ML VIAL IV SCH (09:59)
--- NOTE | 2020-04-18 11:40 | NUR ---
SPOKE WITH DR. PETE WHO ORDERED PREP H FOR PT'S HEMORRHOIDS. PER MD, PT ON XARELTO, NEED TO [facility] CARDIOLOGY REGARDING ELEVATED INR. PAGING DR. WATERMAN.
[2020-04-18] MEDS ORDERED: PHE/SHARK LIVER OIL/COCOA BUT 24 EA SUPP RC SCH (12:30)
--- NOTE | 2020-04-18 12:52 | NUR ---
WOUND CARE CONSULT FOR 79 YO MALE HX OF CHF JANICE 21 ON CONSERVATIVE PUP STATUS AND INTERVENTIONS AND ALTERNATING PRESSURE MATTRESS LABS: WBC-4.69 HGB_12.5 GLUCOSE-103 SKIN ASSESSMENT COMPLETE PATIENT PRESENTS WITH SACRAL STAGE 2 ULCERATION 0.5CM X0.5CM X0.1CM LARGE BLISTER SURFACE FLUID RELEASED FROM INSIDE SURFACE SKIN LOOSE BUT INTACT 10.5CM X8CM RECOMMENDATIONS: NURSING TO CONTINUE TO MAINTAIN CONSERVATIVE PUP STATUS AND INTERVENTIONS AND ALTERNATING PRESSURE MATTRESS NURSING TO CONTINUE TO ASSIST PATIENT OUT OF BED FOR MEALS AND MUCH TOLERATED NURSING TO CONTINUE TO ASSIST PATIENT NEEDED WITH MEALS AND NUTRITIONAL SUPPLEMENTS TO ENSURE PROPER REQUIREMENTS FOR HEALING NURSING TO CONTINUE TO OFFLOAD FEET AND HEELS NEEDED WITH PILLOW SUSPENSION WHEN IN BED NURSING TO CLEAN LEFT FOOT BLISTERED AREA WITH NORMAL SALINE DAILY AND APPLY VENELEX OINTMENT AND ALLEVYN FOAM DRESSING Addendum: 04/18/20 at 1257 by Tristan Ziegler RN Amended: Links added.
--- NOTE | 2020-04-18 16:34 | Consultation ---
DATE OF CONSULTATION: HISTORY OF PRESENT ILLNESS: This is an 79-year-old man with a history of chronic systolic congestive heart failure, status post ICD; coronary artery disease, status post bypass surgery; hypertension, hyperlipidemia, and chronic debility, who presented to the emergency department with progressively worsening shortness of breath, lower extremity swelling, and weakness. Symptoms were moderate intensity, progressively worsening over the last couple of weeks, no associated chest pain, associated with severe lethargy and fatigue. The daughter states that he has taken a significant decline over the last 5 weeks after getting a stomach bug. He is not eating well and is losing weight. His leg started swelling severely, so he is forming blisters overnight according to the daughter. REVIEW OF SYSTEMS: A 12-point review of system was conducted, is negative, as stated above in the HPI. PAST MEDICAL HISTORY: As stated above in the HPI. PAST SURGICAL HISTORY: Bypass surgery, ICD implantation. PAST FAMILY HISTORY: Noncontributory to current illness. PAST SOCIAL HISTORY: No illicit drug, alcohol, or tobacco use. ALLERGIES: MORPHINE, PENICILLIN. MEDICATIONS: See medication reconciliation form. PHYSICAL EXAMINATION: VITAL SIGNS: Temperature is 98.4, heart rate is 93, respirations 18, blood pressure is 102/60, and oxygen saturation 98% on room air. GENERAL: He is a chronically ill-appearing elderly man, lying comfortably in bed, no apparent distress. Alert and oriented x3. HEAD: Normocephalic and atraumatic. Eyes, the extraocular muscles intact. Conjunctiva are clear. NECK: Jugular venous distention is present. CARDIOVASCULAR: Regular rate and rhythm. LUNGS: Diminished breath sounds at the bases. ABDOMEN: Soft, nontender, nondistended. EXTREMITIES: Lower extremities are edematous with 2+ pitting edema and fluid-filled blisters over the left foot. Upper extremities appear thin with muscle wasting. NEUROLOGIC: No focal deficits noted on gross examination. LABORATORY DATA: Reviewed. Troponins are negative. BNP is 4416. Creatinine is 3.5, potassium is 5.6. Chest x-ray shows cardiomegaly and pulmonary vascular congestion. IMPRESSION: 1. [id number] systolic congestive heart failure. 2. Lower extremity edema. 3. Debility. 4. Failure to thrive. 5. Chronic kidney disease. 6. Hyperkalemia. RECOMMENDATIONS: The patient is very volume overloaded. Continue Lasix and monitor his renal function and urinary outputs. Recommend consulting Nephrology. Continue his Xarelto for his anticoagulation needs. We will hold other antihypertensives as he is mildly hypotensive. Continue to follow along with you. DO JAZMINE Chino/KENZIE /[id number]
[2020-04-18] MEDS ORDERED: FUROSEMIDE INJ 10 MG/ML 4 ML VIAL IV SCH (17:00)
--- NOTE | 2020-04-18 17:07 | NUR ---
REPORT GIVEN TO NILA SARMIENTO. PT IN STABLE CONDITION.
--- NOTE | 2020-04-18 17:09 | Progress Note ---
DATE: 04/18/2020 Cardiology Progress Note SUBJECTIVE: The patient denies chest pain, but does report shortness of breath. OBJECTIVE: VITAL SIGNS: Temperature 97.3 degrees, pulse 74, respiratory rate 17, blood pressure 111/59, oxygen saturation 97% on room air. GENERAL: Elderly man, in no acute distress. Awake and alert. LUNGS: Decreased breath sounds at the bases, otherwise clear to auscultation. No wheezes or crackles. CARDIOVASCULAR: Irregularly irregular. No murmur. Normal S1 and S2. ABDOMEN: Soft and nontender. EXTREMITIES: 1+ pitting edema. Dressing present on the left foot. CARDIAC MEDICATIONS: 1. Furosemide 40 mg p.o. daily. 2. Simvastatin 40 mg p.o. at bedtime. 3. Xarelto 15 mg p.o. b.i.d. 4. Metoprolol succinate 25 mg p.o. daily. LABORATORY DATA: Sodium 142, potassium 3.1, chloride 106, CO2 of 25, BUN 91, creatinine 2.6. IMPRESSION: 1. Acute on chronic systolic heart failure with LVEF of 10 to 15%. 2. Coronary artery disease. 3. Status post AICD. 4. Chronic kidney disease. 5. Atrial fibrillation on Xarelto as an outpatient. 6. Hypertension. 7. Hyperlipidemia. 8. Peripheral arterial disease. RECOMMENDATIONS: Continue the patient on IV Lasix. He remains volume overloaded. Creatinine has improved with diuresis. Would not hold IV diuretics for hypotension. In addition, the patient's INR is supratherapeutic. The patient was only on Xarelto 15 mg once a day as an outpatient. We will decrease dosing. Repeat INR. Suspect supratherapeutic INR from congestive hepatopathy. Continue current cardiac medications. Monitor the patient closely on telemetry. Continue wound care. Thank you for this consult. We will continue to follow. Yoli Gardner MD ABS/MODL /[id number]
[2020-04-18 17:53] LABS: INR 4.55; PROTHROMBIN TIME 46.8 seconds (11.9-14.5)
[2020-04-18] MEDS ORDERED: PHYTONADIONE 5 MG TAB PO ONE (18:30)
--- NOTE | 2020-04-18 18:44 | NUR ---
CALLED DR. YURIDIA MURRAY'S OFFICE REGARDING LAB PT 46.8, SPOKE TO MARK, SHE STATED THAT SHE WOULD PAGE THE DOCTOR.
[2020-04-18] MEDS ORDERED: PHYTONADIONE 10 MG/ML AMP PO ONE (18:45)
[2020-04-18] MEDS ORDERED: TAMSULOSIN HCL 0.4 MG CAP PO SCH (21:00)
--- NOTE | 2020-04-18 21:10 | Progress Note ---
DATE: 04/18/2020 SUBJECTIVE: The patient has been debilitated. The patient has not had chest pain and he is in no distress at this time. Denies abdominal pain. No nausea, vomiting, or diarrhea. No fever, no chills. OBJECTIVE: GENERAL: The patient has been alert, follows commands properly. At the present time, looks well nourished. VITAL SIGNS: Blood pressure 111/59, respirations 17, pulse 74, temperature 97.3. HEENT: Head is normocephalic, atraumatic. NECK: Supple. No JVD. LUNGS: Decreased breathing sounds. HEART: Regular rate and rhythm. ABDOMEN: Soft, nontender. EXTREMITIES: 1+ edema. MEDICATIONS: List of medications noted. Presently on Lasix 40 mg p.o. daily, simvastatin 40 mg p.o. at bedtime, Xarelto 50 mg p.o. b.i.d., metoprolol succinate 25 mg p.o. daily. LABORATORY DATA: Chem profile disclosed sodium 142, potassium 3.1, chloride 106, CO2 of 25, BUN 91, creatinine 2.30, glucose level 103. ASSESSMENT: 1. Congestive heart failure. The patient was having difficulty with ejection fraction. The ejection fraction at 10%. 2. Chronic renal failure with superimposed acute renal failure. 3. Hypertension. 4. Hyperlipidemia. 5. Chronic obstructive pulmonary disease. 6. Status post coronary artery bypass graft surgery. 7. Status post AICD. 8. Previous heart stent. 9. Previous cholecystectomy. 10. Previous carotid surgery. PLAN OF CARE: Continue diuresis. Cardiology evaluation noted. Xarelto is being decreased to once a day. We will continue IV Lasix. Follow up INR. Renal following the patient. Monitor lytes. MD BLADIMIR Meza/KENZIE /[id number] MTDD
[2020-04-18] MEDS: TRAZODONE HCL 50 MG TAB PO SCH (21:13)
[2020-04-18] MEDS: SIMVASTATIN 40 MG TAB PO SCH (21:13)
[2020-04-19] VITALS: BP 114/79
--- NOTE | 2020-04-19 00:29 | NUR ---
ESCORTING PATIENT TO BATHROOM WITH WALKER. R ARM STARTED TO SHAKE AND BECAME NON RESPONSIVE. CALLED FOR ASSISTANCE AND PATIENT WAS ASSISTED ONTO TOILET. SECURITY INSTALLATION TECHNICIAN CALLED. PATIENT TRANSFERRED BY WHEELCHAIR TO BED. MD SHI AT DURING SECURITY INSTALLATION TECHNICIAN. R FEMORAL CENTRAL LINE STARTED BY SECURITY INSTALLATION TECHNICIAN . BIPAP PROVIDED BY SECURITY INSTALLATION TECHNICIAN. PLEASE SEE SECURITY INSTALLATION TECHNICIAN FOR ADDITIONAL INFORMATION.
[2020-04-19 01:42] LABS: BASOPHILS % 0.2 % (0.0-1.0); EOSINOPHILS % 0.5 % (0.0-6.0); HEMATOCRIT 38.8 % (38.2-49.6); HEMOGLOBIN 12.5 g/dL (14.0-18.0); LYMPHOCYTES # (AUTO) 0.8 (1.0-3.2); LYMPHOCYTES % 9.3 % (18.0-39.1); MEAN CORPUSCULAR HEMOGLOBIN 32.6 pg (28-32); MEAN CORPUSCULAR HGB CONC 32.2 g/dL (31-35); MONOCYTES # (AUTO) 0.4 (0.2-0.8); MONOCYTES % 4.4 % (4.4-11.3); NEUTROPHILS # (AUTO) 7.4 (2.1-6.9); PLATELET COUNT 75 x10e3/uL (140-360); RED BLOOD COUNT 3.84 x10e6/uL (4.3-5.7); RED CELL DISTRIBUTION WIDTH 17.6 % (11.7-14.4)
[2020-04-19 01:53] LABS: INR 4.01
--- NOTE | 2020-04-19 01:55 | Diagnostic Imaging Report ---
EXAMINATION: CHEST SINGLE (PORTABLE) COMPARISON: Chest x-ray 04/16/2020 INDICATION: ^respiratory distress ^[id number] ^[id number] DISCUSSION: Frontal view of the chest obtained at 0141 hours. HEART AND MEDIASTINUM: Stable cardiomegaly and cardiac bypass changes LINES: Stable pacer/fibrillator wires in the right atrium and right ventricle LUNGS/PLEURA: Pulmonary vascular markings are prominent and indistinct. There are small stable bilateral pleural effusions. No interstitial prominence. No pneumothorax. BONES AND SOFT TISSUES: Stable. IMPRESSION: Cardiomegaly and pulmonary vascular congestion with stable small pleural effusions. Signed by: Dr. Rosemary Jorge MD on 04/19/2020 1:52 AM
--- NOTE | 2020-04-19 01:55 | NUR ---
SPOKE TO [facility] GAMBOA. UPDATED ON PATIENT CONDITION. PERMISSION RECEIVED FOR FAMILY MEMBER TO COME TO BEDSIDE.
[2020-04-19 02:00] VITALS: BP 99/47
[2020-04-19 02:02] LABS: ALBUMIN 3.5 g/dL (3.5-5.0); ALBUMIN/GLOBULIN RATIO 1.3 (0.8-2.0); ANION GAP 17.3 mmol/L (8-16); CALCIUM 8.8 mg/dL (8.4-10.2); CREATININE, SERUM 2.75 mg/dL (0.72-1.25); PROTHROMBIN TIME 42.3 seconds (11.9-14.5)
[2020-04-19 02:03] LABS: POTASSIUM 4.3 mmol/L (3.5-5.1)
[2020-04-19 02:08] LABS: CREATINE KINASE MB 6.4 ng/mL (0-5.0)
--- NOTE | 2020-04-19 02:09 | NUR ---
Notified Dr. Blair of STAT labs(CBC, CMP,PT) no new orders at this time. Advised to call back with the rest of the labs when available.
[2020-04-19 02:23] LABS: MAGNESIUM 2.3 MG/DL (1.3-2.1); PHOSPHORUS 4.3 MG/DL (2.3-4.7)
[2020-04-19 02:29] VITALS: BP 104/47
--- NOTE | 2020-04-19 02:38 | NUR ---
Informed Dr. Blair of the results for the rest of the STAT labs(Mag, Troponin. CK-MB). No new orders at this time.
--- NOTE | 2020-04-19 02:45 | NUR ---
MD HAYES AT BEDSIDE MONITORING PT. INSTRUCTED TO REMOVE BIPAP AND MONITOR SPO2 AT BEDSIDE WITH MD. PT SPO2 MAINTAINED 96-100% ON 2L O2 BY NC. INSTRUCTED TO CONTINUE TO MONITOR PATIENT SPO2 STATUS.
[2020-04-19 02:54] VITALS: BP 93/45
--- NOTE | 2020-04-19 03:12 | Progress Note ---
DATE: SUBJECTIVE: Mr. Conti got quite ill approximately past midnight on . Rapid response team was called and the patient had to be ventricular tachycardia. The patient was on respiratory distress. He is known to have a history of CHF, chronic renal failure, and atrial fibrillation. He is being followed by Cardiology, Dr. Yoli Gardner, and the patient has had previous AICD placement and he was noted to have left ventricular ejection fraction of 10% to 50%. problems include hypertension, hyperlipidemia, and peripheral arterial disease. He has been given diuresed. His creatinine has been around 2.60. Sodium 142, potassium 3.1, chloride 106 as of today and magnesium level has been 2.3. PHYSICAL EXAMINATION: GENERAL: The patient was seen in distress. VITAL SIGNS: His latest vital signs, blood pressure, systolic in the 130s and diastolic in the 70s; respiratory rate around 38, pulse 142. HEENT: Head is normocephalic, atraumatic. NECK: Supple. No JVD. LUNGS: Decreased breathing sounds. HEART: Irregular heart rate. ABDOMEN: Soft, nontender. EXTREMITIES: 1+ edema. NEUROLOGIC: Nonfocal. ASSESSMENT: 1. Ventricular tachycardia. 2. History of congestive heart failure. 3. Severe left ventricular dysfunction. 4. Status post ICD placement. 5. History of chronic artery disease. 6. History of hypertension. 7. Chronic obstructive pulmonary disease. 8. Previous heart stent. PLAN OF CARE: Follow up labs. Serial cardiac enzymes. CBC, CMP, magnesium level. We will try to transfer the patient to another facility since we do not have ICU beds at this time. MD BLADIMIR Meza/KENZIE /[id number]
[2020-04-19 04:00] VITALS: BP 95/79
--- NOTE | 2020-04-19 04:28 | NUR ---
PULMONARY/CRITICAL CARE discussed case at length with pt, daughter, multiple staff members Oxygen weaned to RA, 100% saturation. Labs continue to stabilize / improve, except platelets. CXR improved, possible right sided pneumonia. Old CT chest suggests pleural parenchymal scarring being present. Fluid status is better. Patient with cardiac protection by AICD. ReC: if AICD working, he has excellent protection and may not necessarily need ICU. Patient however not confirmed he has a working device yet, interrogation pending? Workup platelets as needed. Tentative Dr Rodgers cardiology at [facility] accepts patient for transfer to higher level of care.
[2020-04-19] MEDS ORDERED: DOXYCYCLINE 100MG/NS 100ML 100 ML IV SCH (05:00)
[2020-04-19] MEDS ORDERED: CEFEPIME 1GM/NS 0.9% 50 ML 50 ML IV SCH (05:00)
--- NOTE | 2020-04-19 05:15 | NUR ---
REPORT CALLED TO RAYMOND SIM RN AT [facility] IN THE [facility] FOR PT TRANSFERRING TO CCU BED 6.
--- NOTE | 2020-04-19 05:20 | NUR ---
CENTRAL LINE CARE PROVIDED. CHG BATH GIVEN
--- NOTE | 2020-04-19 05:35 | NUR ---
EMT AT BEDSIDE TO PERFORM TRANSPORT FOR PT GOING TO CCU BED 6 AT [facility] FOR HIGHER LEVEL OF CARE. Addendum: 04/19/20 at 0536 by Tenisha Reddy RN MOT PROVIDED BY [employer] FOR PATIENT TRANSPORT.
--- NOTE | 2020-04-19 05:36 | NUR ---
PT TRANSFERRED BY STRETCHER/EMT. PT CURRENTLY ON NASAL CANNULA 2L. NO S/SX OF DISTRESS NOTED. PT IN STABLE CONDITION.
[2020-04-19 05:52] LABS: BASOPHILS % 0.2 % (0.0-1.0); EOSINOPHILS % 0.1 % (0.0-6.0); HEMATOCRIT 33.8 % (38.2-49.6); HEMOGLOBIN 11.1 g/dL (14.0-18.0); LYMPHOCYTES # (AUTO) 0.3 (1.0-3.2); MEAN CORPUSCULAR HEMOGLOBIN 32.6 pg (28-32); MEAN CORPUSCULAR HGB CONC 32.8 g/dL (31-35); MEAN CORPUSCULAR VOLUME 99.1 fL (81-99); MONOCYTES # (AUTO) 0.5 (0.2-0.8); NEUTROPHILS # (AUTO) 9.6 (2.1-6.9); NEUTROPHILS % 91.1 % (38.7-80.0); PLATELET COUNT 59 x10e3/uL (140-360); RED BLOOD COUNT 3.41 x10e6/uL (4.3-5.7); RED CELL DISTRIBUTION WIDTH 17.2 % (11.7-14.4)
[2020-04-19 06:32] LABS: FREE THYROXINE INDEX 1.958 (1.4-3.8); THYROID STIMULATING HORMONE 3.659 uIU/mL (0.350-4.940)
[2020-04-19 06:35] LABS: CALCIUM 8.7 mg/dL (8.4-10.2); CREATININE, SERUM 2.59 mg/dL (0.72-1.25)
--- NOTE | 2020-04-19 07:07 | Consultation ---
DATE OF CONSULTATION: 04/19/2020 Pulmonary Critical Care Medicine Consult PRIMARY CARE PHYSICIAN: Feliciano Jaramillo MD CHIEF COMPLAINT: Malignant cardiac arrhythmias. HISTORY OF PRESENT ILLNESS: Mr. Conti is a pleasant 79-year-old gentleman with reported atrial fibrillation, ventricular fibrillation today. The patient was admitted to [facility] on April 15, 2020. The patient was having shortness of breath and swelling of his legs. It was noted that he has advanced cardiomyopathy with LVEF 10% to 15% per notes as well as CKD. The patient was having diuresis when he went to the restroom today. He was witnessed and the patient lost consciousness and telemetry was having reported atrial fibrillation/ventricular tachycardia. Heart rate is at least 140 beats per minute. The patient was altered after this episode. Furthermore, the patient was given BiPAP rescue as the saturations were reported in 70s and 80s percentile range immediately after the event. I am consulted. PAST MEDICAL HISTORY: CHF, LVEF 10% to 15%, coronary artery disease, history of VA, COPD reported possible, hypertension, hyperlipidemia, CKD, AICD, previous heart stents, CABG, and carotid surgery. MEDICATIONS: Medication list reviewed per the chart record. ALLERGIES: MORPHINE AND PENICILLIN. SOCIAL HISTORY: The patient only transiently smoked, but quit in his 30s. The patient only transiently drank alcohol, but quit in his 30s. No drugs. FAMILY HISTORY: Noncontributory. REVIEW OF SYSTEMS: Cannot get reliably, he sees slightly altered or not understanding while on BiPAP. OBJECTIVE: VITAL SIGNS: Currently afebrile, vital signs noted reviewed per the chart record. No acute distress. I took him off BiPAP, where saturation on room air is remaining at 100%. GENERAL: In no acute distress, alert, calm, talks with daughter, is doing most of talking. LUNGS: Bilateral air entry, limited. CARDIOVASCULAR: S1, S2. ABDOMINAL: There is fullness, but nontender. EXTREMITIES: There is some leg edema 2+. LABORATORY DATA: Creatinine 2.75, which is decreased from 3.5. 4.3 potassium, 24 bicarbonate, 86 BUN, white count 9, 39 hematocrit, platelets 75. Urine culture came back as normal. INR started to come down at 4.01. IMPRESSION AND PLAN: 1. Malignant cardiac arrhythmia, treated tachycardia. 2. Transient confusion, altered mental status. Improved. Moving all four extremities on command easily. 3. Acute on chronic kidney failure, improving. 4. Thrombocytopenia. 5. Coagulopathy, I assume it is anticoagulant related. 6. Weakness/debility. 7. Abnormal chest radiography. In September 2013, old CT chest with pleural parenchymal scarring and rounded atelectasis among other features. 8. Abnormal chest radiography, fluid overload, probably improving. This is acute on chronic congestive heart failure, systolic. 9. Abnormal chest radiography, possible pneumonitis, acute less likely, but not ruled out. 10. Coronary artery disease, status post coronary artery bypass grafting, status post myocardial infarction and status post stenting. 11. Hypertension. 12. Hyperlipidemia. 13. Include ascites, pelvic on radiography. Recommend further telemetry monitoring closely. If Cardiology clears the patient's AICD as working well, then there is no high-level indication that increases level of care. Electrolytes were re-checked and are pretty normal. Check a TSH level. Magnesium was good and potassium was good. Check a HIT antibody test. Wean off BiPAP and give oxygen by protocol right now. The patient cites the possibility of dysphagia and we will have speech therapy evaluation. I discussed with [facility]. He is tentatively approved for transfer to a higher level of care, although if Cardiology clears his AICD as functional, then consideration could be to keep him. We will address other medical issues as stated, but those are some of the most important ones. Greater than 30 minutes in direct care and coordination here. Thank you very much, Dr. Blair and Dr. Feliciano Jaramillo for allowing me a chance to participate in care of Mr. Conti. Please call for questions. MD TATIANA Cuadra/KENZIE /[id number]
[2020-04-19] MEDS ORDERED: FUROSEMIDE 40 MG TAB PO SCH (09:00)
[2020-04-19] MEDS ORDERED: RIVAROXABAN 15 MG TABLET PO SCH (09:00)
[2020-04-19] MEDS ORDERED: BALSAM PERU/CASTOR OIL 60 GM OINT...G. TP SCH (09:00)
[2020-04-19 11:16] LABS: ANISOCYTOSIS SLIGHT; LYMPHOCYTES % (MANUAL) 5 % (19-48); MONOCYTES % (MANUAL) 7 % (3.4-9.0); NEUTROPHILS % (MANUAL) 88 % (40-74); NUCLEATED RED BLOOD CELLS 1; PLATELET MORPHOLOGY COMMENT NORMAL
[2020-04-19 11:17] LABS: PLATELET ESTIMATE MODERATELY DECREASED; RBC MORPHOLOGY COMMENT NORMAL
== END 2020-04-19 05:36 | disposition short-term general hospital (02) | DRG 291 ==
LOC: ER 16:15 → ERHOLD 22:12 → MED/SURG 04-16 00:28
PROVIDERS: ADMIT Internal Medicine; ATTEND Internal Medicine
DX: I13.0 Hypertensive heart and chronic kidney disease with heart failure and stage 1 through stage 4 chronic kidney disease, or unspecified chronic kidney disease (principal); I50.23 Acute on chronic systolic (congestive) heart failure; J18.9 Pneumonia, unspecified organism; E43 Unspecified severe protein-calorie malnutrition; I47.2 Ventricular tachycardia; N17.9 Acute kidney failure, unspecified; E87.2 Acidosis; D61.818 Other pancytopenia; R18.8 Other ascites; Z68.1 Body mass index [BMI] 19.9 or less, adult; R62.7 Adult failure to thrive; E87.5 Hyperkalemia; R53.81 Other malaise; I25.10 Atherosclerotic heart disease of native coronary artery without angina pectoris; I25.2 Old myocardial infarction; E78.5 Hyperlipidemia, unspecified; N18.9 Chronic kidney disease, unspecified; J44.9 Chronic obstructive pulmonary disease, unspecified; Z95.1 Presence of aortocoronary bypass graft; Z95.810 Presence of automatic (implantable) cardiac defibrillator; Z95.5 Presence of coronary angioplasty implant and graft; Z90.49 Acquired absence of other specified parts of digestive tract; Z88.0 Allergy status to penicillin; R41.82 Altered mental status, unspecified; Z88.5 Allergy status to narcotic agent; R23.8 Other skin changes; Z11.59 Encounter for screening for other viral diseases
CPT/HCPCS: 36415; 71045; 71046; 76770; 80048; 80053; 81001; 82550; 82553; 82570; 82948; 83735; 83880; 84100; 84300; 84436; 84443; 84479; 84484; 85025; 85610; 85730; 86022; 87086; 87635; 93005; 93041; 94660; 99251; 99285; J1940; J3430; J3480; J7050

== ENCOUNTER → 2020-04-15 | Outpatient (CLI) | payer OTHER ==
[~2020-04-15] MED LIST changes: +ALLOPURINOL100 MG PO; +FUROSEMIDE40 MG PO; +NITROGLYCERIN0.4 MG SL; +PANTOPRAZOLE SO40 MG PO; +POTASSIUM CHLO10 ME1 PO; +TRAZODONE HCL50 MG PO; +XARELTO15 MG PO
--- NOTE | 2020-04-15 15:30 | Diagnostic Imaging Report ---
EXAMINATION: CHEST 2 VIEWS INDICATION: Shortness of breath COMPARISON: Chest radiograph of 02/04/2019 FINDINGS: LINES/TUBES:Left chest AICD. LUNGS:The lungs are hyperinflated. There is perihilar fullness and indistinctness of the pulmonary vasculature. Mild bibasilar patchy opacities. PLEURA:Trace right pleural effusion. No left pleural effusion. No pneumothorax. MEDIASTINUM:Cardiomediastinal silhouette is stably enlarged. Atherosclerotic calcifications of the thoracic aorta. Postoperative findings of prior CABG. BONES/SOFT TISSUES:No acute osseous injury. Sternotomy wires in place. ABDOMEN:No free air under the diaphragm. IMPRESSION: Cardiomegaly and central pulmonary vascular congestion. Trace right pleural effusion. Mild bibasilar patchy opacities, most likely subsegmental atelectasis. Signed by: Zonia Barber MD on 04/15/2020 3:27 PM
== END ==
LOC: RAD 14:30
PROVIDERS: ATTEND Internal Medicine
DX: R06.02 Shortness of breath (principal)
CPT/HCPCS: 36415; 71046; 82948